=== PATIENT | male | born 1940 | race Caucasian/White ===

== ENCOUNTER → 2017-08-25 10:27 | Outpatient (CLI) | payer MEDICARE, SELFPAY ==
--- NOTE | 2017-08-25 10:27 | DT_ITS ---
This patient was seen during an EMR downtime August 21, 2017 - August 28, 2017. This patient may have a combination of paper and electronic documentation or all paper documentation. All documentation is viewable within the e-chart portion of [employer] for each patient visit.
[2017-08-25 14:21] LABS: ALB/GLOB Ratio 1.2 RATIO (0.9-2.4); AST(SGOT) 20 U/L (15-37); Alanine Aminotransfer ALT/SGPT 30 U/L (16-61); Albumin, Serum 3.7 g/dL (3.2-5.0); Alkaline Phosphatase 61 U/L (45-117); BUN 14 mg/dL (7-18); BUN/Creat Ratio 14.9 RATIO (10-20); Calcium,Total 8.3 mg/dL (8.5-10.1); Creatinine, Serum 0.94 mg/dL (0.70-1.30); EST Glomerular Filtration Rate 83 mL/min (>60); Est Glom Filt Rate - Afr Amer 101 mL/min (>60); Globulin 3.2 g/dL (2.2-4.2); Glucose 104 mg/dL (74-106); Protein, Total 6.9 g/dL (6.4-8.2)
[2017-08-25 14:22] LABS: Anion Gap 6 (5-15); Chloride 108 mmol/L (98-107); Potassium 4.2 mmol/L (3.5-5.1); Sodium Level 142 mmol/L (136-145); T4 Free Direct 0.94 ng/dL (0.76-1.46); Thyroid Stim Hormone (TSH) 0.82 uIU/mL (0.358-3.74)
[2017-08-25 14:59] LABS: Hematocrit 45.6 % (40-54); Mean Corp Hgb Conc 32.9 g/gl (32-36); Mean Corpuscular Hgb 32.4 pg (27.0-32.0); Mean Corpuscular Volume 98.5 fL (80-94); Red Blood Count 4.63 M/mm3 (4.6-6.2); White Blood Count 4.9 K/mm3 (4.4-11.0)
[2017-08-25 15:00] LABS: Absolute Lymphocyte Count 1.81 X10^3/ul (0.83-4.51); Absolute Neutrophil Count 2.5 X10^3/uL (2.0-7.7); Basophil# 0.02 X10^3/uL; Basophil% 0.4 % (0-1); Eosinophil# 0.21 X10^3/uL; Eosinophils% 4.3 % (0-5); Lymphocyte # 1.81 X10^3/ul (4.0); Lymphocyte % 36.9 % (19-41); Mean Platelet Vol. 9.3 fl (6.2-12.0); Monocyte# 0.36 X10^3/uL; Monocyte% 7.3 % (0-10); Neutrophil % 51.1 % (47-70); POSITIVE COUNT NO; POSITIVE DIFFERENTIAL NO; POSITIVE MORPHOLOGY NO; Platelet Count 182 K/mm3 (150-450)
== END ==
PROVIDERS: Family Provider Family Medicine; PCP Family Medicine; Visit Provider Family Medicine
DX: E11.9 Type 2 diabetes mellitus without complications (principal); I10 Essential (primary) hypertension; R00.1 Bradycardia, unspecified
CPT/HCPCS: 36415; 80053; 84439; 84443; 85025

== ENCOUNTER → 2017-09-07 13:59 | Outpatient (CLI) | payer MEDICARE, SELFPAY ==
--- NOTE | 2017-09-07 14:00 | CT_ITS ---
STUDY: CTA CHEST REASON FOR EXAM: Male, 77 years old. Thoracic aortic aneurysm follow-up. RADIATION DOSAGE (If Supplied By Facility): CTDIvol = ( 18.13 ) mGy, DLP = ( 669.37 ) mGycm TECHNIQUE: The examination was performed with the intravenous administration of 100mL ml of Isovue 370 contrast material. Post-processing of the angiographic images was performed, with multiplanar reformation and 3D reconstruction. Individualized dose optimization techniques were used for this CT. COMPARISON: CT of the chest June 13 2016 FINDINGS: Normal enhancement of the main pulmonary artery and right and left pulmonary arteries. Normal enhancement of the bilateral peripheral pulmonary arteries. There is no demonstrated pulmonary embolism. There is atherosclerotic tortuosity of the thoracic aorta. The ascending thoracic aorta measures 4.1 x 4.1 cm at the level of the right pulmonary artery (image 67, series 2) There is no demonstrated aortic dissection. Normal heart and pericardium. There are calcifications of the coronary arteries. Normal mediastinum. Normal hilar regions. Normal visualized trachea and bronchi. The lungs are well expanded. Normal pulmonary parenchyma. Normal pleura. Normal chest wall structures. Normal osseous structures. Normal visualized upper abdomen. CT/CTA Chest W/WO Contrast IMPRESSION: Ascending thoracic aortic aneurysm as described. Electronically Signed: Naren Arechiga DO at 16:58 EDT Tel [phone], Service support ,
== END ==
PROVIDERS: Family Provider Family Medicine; PCP Family Medicine; Visit Provider Internal Medicine Cardiovascular Disease
DX: I71.2 Thoracic aortic aneurysm, without rupture (principal)
CPT/HCPCS: 71275; Q9967

== ENCOUNTER 2018-07-01 17:29 | Emergency (ER) | payer MEDICARE, SELFPAY ==
[2018-02-21 11:26] VITALS: BMI 27.7
[2018-07-01 17:29] VITALS: BP 132/72; PULSE 62; RESP 16; TEMP 36.4; O2SAT 97; BMI 28.0
--- NOTE | 2018-07-01 18:54 | ED.DCSUM_ITS ---
- ER Visit Summary Date of Service: 07/01/18 Chief Complaint: [Left arm swelling] History of Present Illness: The patient is a 77 M [presents the emergency department complaint of left arm swelling that he initially noticed yesterday. Patient had some mild puffiness to the dorsum of the left hand but he had used a mower and a leaf blower and was having a lot of vibrations through it so he did not think much of it. This morning patient woke up in his forearm was also swollen and up towards his upper arm. Patient also noticed a red discoloration to the arm. His not had any fever or chills. He does not feel ill otherwise. He denies any chest pain or shortness of breath. Patient did have a pacemaker placed last January. He has had no other surgeries recently.] Physical Examination: [ROMARIO-PERRLA, MYRAMI. Cranial nerves II through XII grossly intact. TMs clear. Mucous membranes moist. No adenopathy. Cardiovascular-regular rate and rhythm without murmur or ectopy Lungs-clear to auscultation, chest wall stable without crepitus or subcu emphysema Abdomen-normoactive bowel sounds, soft, nontender, no rebound or rigidity, no peritoneal signs. Extremities-intact ?4, normal range of motion, normal pulses, atraumatic. Left arm-patient does have edema of the hand and forearm and just mild edema of the upper arm. There is a reddish discoloration to the left arm compared to the right however there is no change in temperature or warmth compared to the opposite side. There is no lymphogenic streaking. No ropes or cords palpated.] Test Results: [] Emergency Department Course and Treatment: [Ultrasound is not available therefore patient was given a dose of Eliquis 10 mg and patient was given a prescription to have a venous Doppler of the left upper extremity tomorrow morning. Patient also started on Keflex empirically as it is unclear if the edema could be early cellulitis given the reddish discoloration to the arm as well. Patient has normal pulses and I do not feel there is a arterial insufficiency.] Treatment Plan: [Patient will be started on Keflex and to have venous duplex of the left arm] Disposition: [Discharged home in stable condition] Impression: [Left arm swelling-etiology uncertain] This note was generated with [employer] software. It may contain incorrect words, spelling, and punctuation that were not noted in review of the chart prior to signing ED Disposition - Plan for ED Patient: Referrals: Jason Maston MD [Primary Care Provider] -
--- NOTE | 2018-07-01 18:55 | ED.DEP ---
ED Disposition - Plan for ED Patient: Instructions: ED Infec Skin Cellulitis Prescriptions: Cephalexin [Keflex] 500 mg PO Q6 #40 cap Referrals: Jason Matson MD [Primary Care Provider] - 3-5 Days
[2018-07-01] MEDS: APIXABAN 5 MG TABLET 10 MG PO (19:10)
[2018-07-01] MEDS: Cephalexin 250 MG Capsule 500 MG PO (19:11)
== END 2018-07-01 19:12 | disposition home or self-care (01) ==
LOC: ED 18:55
PROVIDERS: Emergency Provider Emergency Medicine; Family Provider Family Medicine; PCP Family Medicine
DX: M79.89 Other specified soft tissue disorders (principal); I25.10 Atherosclerotic heart disease of native coronary artery without angina pectoris; I25.2 Old myocardial infarction; E11.9 Type 2 diabetes mellitus without complications; Z95.0 Presence of cardiac pacemaker; Z79.82 Long term (current) use of aspirin; Z79.899 Other long term (current) drug therapy
CPT/HCPCS: 99283

== ENCOUNTER → 2018-07-02 10:37 | Outpatient (CLI) | payer MEDICARE, SELFPAY ==
[2018-07-01 17:29] VITALS: BMI 28.0
--- NOTE | 2018-07-02 10:44 | VDUE_ITS ---
Reason For Study: SWELLING Right Proximal Left Proximal Right subclavian vein is spontaneous, widely Left jugular vein is spontaneous, widely patent, phasic, with no intraluminal patent, phasic, with no intraluminal echogenicity noted. echogenicity noted. LT Subclavian v is dilated with intraluminal echogenicity noted in the proximal portion,. Thrombus extends proximally and to pacemaker placement. Left Arm Left axillary vein is spontaneous, patent, phasic, competent, compressible and demonstrates augmentation. Left brachial vein is compressible. Cephalic v intraluminal echogenicity extends from the Subclavian junction to just above junction. Left basilic vein is compressible. Left Lower Arm Left radial vein is compressible. Left ulnar vein is compressible. Interpretation Summary Acute deep venous thrombosis left subclavian vein in the proximal portion extending to the pacemaker placement. Superficial thrombophlebitis left cephalic vein adjacent to the subclavian vein junction. Normal flow right subclavian vein Ordering Physician: Marilin Simmons Referring Physician: LANA SERRANO Performed By: Annabella Childers, ANI, RVT ?
== END ==
PROVIDERS: Family Provider Family Medicine; PCP Family Medicine; Referring Provider Emergency Medicine; Visit Provider Emergency Medicine
DX: M79.89 Other specified soft tissue disorders (principal)
CPT/HCPCS: 93971

== ENCOUNTER → 2018-09-17 | Outpatient (CLI) | payer MEDICARE, SELFPAY ==
[2018-07-23 10:02] VITALS: BMI 27.8
--- NOTE | 2018-09-17 12:36 | VDUE_ITS ---
Reason For Study: Swelling, F/U DVT 06/2018 Right Proximal Left Proximal Right jugular vein is spontaneous, widely Left jugular vein is spontaneous, widely patent, phasic, with no intraluminal patent, phasic, with no intraluminal echogenicity noted. echogenicity noted. Lt SubclavianV is partially compressible with partial color fill, minimal flow noted. Left Arm Left axillary vein is spontaneous, patent, phasic, competent, compressible and demonstrates augmentation. Left brachial vein is compressible. Left cephalic vein is compressible. Left basilic vein is compressible. Left Lower Arm Left radial vein is compressible. Left ulnar vein is compressible. 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 Normal flow patterns right internal jugular vein Ordering Physician: Nacho Washington Referring Physician: Jason Matson Performed By: Heydi Walker RDCS, RVT ?
== END | disposition home or self-care (01) ==
LOC: CVS 12:35
PROVIDERS: Family Provider Family Medicine; PCP Family Medicine; Referring Provider Internal Medicine Cardiovascular Disease; Visit Provider Internal Medicine Cardiovascular Disease
DX: M79.89 Other specified soft tissue disorders (principal); I82.409 Acute embolism and thrombosis of unspecified deep veins of unspecified lower extremity
CPT/HCPCS: 93971

== ENCOUNTER → 2018-09-25 | Outpatient (CLI) | payer MEDICARE, SELFPAY ==
[2018-07-23 10:02] VITALS: BMI 27.8
[2018-09-25 12:13] LABS: Absolute Lymphocyte Count 1.81 X10^3/ul (0.83-4.51); Basophil# 0.01 X10^3/uL; Basophil% 0.2 % (0-1); Eosinophil# 0.17 X10^3/uL; Eosinophils% 3.1 % (0-5); Hemoglobin 14.2 g/dl (13.0-16.5); Lymphocyte # 1.81 X10^3/ul (4.0); Lymphocyte % 33.1 % (19-41); Mean Corp Hgb Conc 32.3 g/gl (32-36); Mean Corpuscular Hgb 30.8 pg (27.0-32.0); Mean Corpuscular Volume 95.4 fL (80-94); Mean Platelet Vol. 9.4 fl (6.2-12.0); Monocyte# 0.51 X10^3/uL; Monocyte% 9.3 % (0-10); Neutrophil # 2.96 X10^3/uL (2.7-7.7); Neutrophil % 54.1 % (47-70); Platelet Count 174 K/mm3 (150-450); RBC Distribution Width CV 12.7 % (11.6-14.6); RBC Distribution Width SD 43.1 fl (35.1-43.9); Red Blood Count 4.61 M/mm3 (4.6-6.2); White Blood Count 5.5 K/mm3 (4.4-11.0)
[2018-09-25 12:19] LABS: POSITIVE COUNT NO; POSITIVE DIFFERENTIAL NO; POSITIVE MORPHOLOGY NO
[2018-09-25 12:40] LABS: ALB/GLOB Ratio 1.1 RATIO (0.9-2.4); AST(SGOT) 21 U/L (15-37); Alanine Aminotransfer ALT/SGPT 28 U/L (16-61); Albumin, Serum 3.5 g/dL (3.2-5.0); Alkaline Phosphatase 68 U/L (45-117); Anion Gap 5 (5-15); BUN 14 mg/dL (7-18); BUN/Creat Ratio 13.5 RATIO (10-20); Chloride 104 mmol/L (98-107); Creatinine, Serum 1.04 mg/dL (0.70-1.30); EST Glomerular Filtration Rate 73 mL/min (>60); Est Glom Filt Rate - Afr Amer 89 mL/min (>60); Globulin 3.3 g/dL (2.2-4.2); Glucose 196 mg/dL (74-106); Magnesium 1.8 mg/dL (1.6-2.6); Potassium 4.3 mmol/L (3.5-5.1); Protein, Total 6.8 g/dL (6.4-8.2); Sodium Level 139 mmol/L (136-145); T4 Free Direct 0.77 ng/dL (0.76-1.46)
== END | disposition home or self-care (01) ==
LOC: BFHLAB 09:36
PROVIDERS: Family Provider Family Medicine; PCP Family Medicine; Visit Provider Family Medicine
DX: I25.10 Atherosclerotic heart disease of native coronary artery without angina pectoris (principal); I44.2 Atrioventricular block, complete; F32.9 Major depressive disorder, single episode, unspecified
CPT/HCPCS: 36415; 80053; 83735; 84439; 84443; 85025

== ENCOUNTER → 2018-10-26 | Outpatient (CLI) | payer MEDICARE, SELFPAY ==
[2018-10-22 10:40] VITALS: BMI 27.8
--- NOTE | 2018-10-26 07:32 | CT_ITS ---
STUDY: CT CHEST WITH CONTRAST REASON FOR EXAM: Male, 78 years old. History of an ascending aortic aneurysm. RADIATION DOSAGE (If Supplied By Facility): CTDIvol = ( 17.14 ) mGy, DLP = ( 581.75 ) mGycm TECHNIQUE: Transaxial imaging was performed following intravenous administration of 100 IV Isovue 300. Multiplanar coronal and sagittal images were reformatted. Individualized dose optimization techniques were used for this CT. COMPARISON: Comparison is made with prior study dated September 07, 2017. FINDINGS: Minimal increased markings at the lung bases suggestive of mild bibasilar scarring. There is no demonstrated pleural abnormality. There are calcifications of the coronary arteries. A left-sided pacemaker is seen. Normal mediastinum. Normal hilar regions. Normal enhanced pulmonary arteries. Minimal dilatation of the ascending thoracic aorta with a transverse dimension of 4.1 cm. This is unchanged. There are mild degenerative changes of the thoracic spine. There is no demonstrated abnormality of the visualized upper abdomen. CT/Chest WITH Contrast IMPRESSION: Stable dilatation of the ascending thoracic aorta with a transverse dimension of 4.1 cm. There has been no change since prior study. Electronically Signed: Apolinar Agrawal, at 13:49 EDT , Service support ,
== END | disposition home or self-care (01) ==
PROVIDERS: Family Provider Family Medicine; PCP Family Medicine; Referring Provider Internal Medicine Cardiovascular Disease; Visit Provider Internal Medicine Cardiovascular Disease
DX: I71.2 Thoracic aortic aneurysm, without rupture (principal)
CPT/HCPCS: 71260; Q9967

== ENCOUNTER → 2018-12-25 12:38 | Outpatient (CLI) | payer MEDICARE, SELFPAY ==
[2018-07-23 10:02] VITALS: BMI 27.8
[2018-10-22 10:40] VITALS: BMI 27.8
--- NOTE | 2018-12-25 12:40 | VDUE_ITS ---
Reason For Study: swelling Left Proximal Left jugular vein is spontaneous, widely patent, phasic, with no intraluminal echogenicity noted. Left subclavian vein is spontaneous, widely patent, phasic, with no intraluminal echogenicity noted. Left Arm Left axillary vein is spontaneous, patent, phasic, competent, compressible and demonstrates augmentation. Left brachial vein is compressible. Left cephalic vein is compressible. Left basilic vein is compressible. Left Lower Arm Left radial vein is compressible. Left ulnar vein is compressible. Interpretation Summary No evidence for acute deep venous thrombosis[left] upper extremity with patent and compressible cephalic and basilic veins. Ordering Physician: Nacho Washington Performed By: Jeyson Boone RVT ?
== END ==
PROVIDERS: Family Provider Family Medicine; PCP Family Medicine; Referring Provider Internal Medicine Cardiovascular Disease; Visit Provider Internal Medicine Cardiovascular Disease
DX: I82.409 Acute embolism and thrombosis of unspecified deep veins of unspecified lower extremity (principal); M79.89 Other specified soft tissue disorders
CPT/HCPCS: 93971

== ENCOUNTER → 2019-05-10 13:27 | Outpatient (CLI) | payer MEDICARE, SELFPAY ==
[2019-05-01 09:27] VITALS: BMI 27.8
[2019-05-10 16:01] LABS: AST(SGOT) 19 U/L (15-37); Alanine Aminotransfer ALT/SGPT 37 U/L (16-61); Albumin, Serum 3.7 g/dL (3.2-5.0); Alkaline Phosphatase 74 U/L (45-117); Bilirubin, Direct 0.16 mg/dL (0.00-0.30); Cholesterol 105 mg/dL (200); Globulin 3.4 g/dL (2.2-4.2); High Density Lipoprotein 43 mg/dL; Protein, Total 7.1 g/dL (6.4-8.2); Triglycerides 133 mg/dL; Very Low Density Lipoprotein 27 mg/dL (5-40)
== END ==
PROVIDERS: PCP Family Medicine; Visit Provider Physician Assistant Medical
DX: I25.10 Atherosclerotic heart disease of native coronary artery without angina pectoris (principal); E78.2 Mixed hyperlipidemia
CPT/HCPCS: 36415; 80061; 80076

== ENCOUNTER → 2020-01-07 10:48 | Outpatient (CLI) | payer MEDICARE, SELFPAY ==
[2019-05-01 09:27] VITALS: BMI 27.8
[2020-01-07 11:49] LABS: Absolute Lymphocyte Count 2.27 X10^3/uL (0.83-4.51); Absolute Neutrophil Count 2.6 X10^3/uL (2.0-7.7); Basophil# 0.04 X10^3/uL; Basophil% 0.7 % (0-1); Eosinophil# 0.25 X10^3/uL; Eosinophils% 4.4 % (0-5); Lymphocyte # 2.27 X10^3/ul (4.0); Mean Corp Hgb Conc 31.9 g/dL (32-36); Mean Corpuscular Hgb 31.1 pg (27.0-32.0); Mean Corpuscular Volume 97.3 fL (80-94); Mean Platelet Vol. 9.5 fl (6.2-12.0); Monocyte# 0.48 X10^3/uL; Monocyte% 8.5 % (0-10); NRBC Flagged by Analyzer 0 % (0-5); Neutrophil # 2.62 X10^3/uL (2.7-7.7); Neutrophil % 46.2 % (47-70); Platelet Count 182 K/mm3 (150-450); RBC Distribution Width SD 46.7 fl (35.1-43.9); Red Blood Count 4.83 M/mm3 (4.6-6.2); White Blood Count 5.7 K/mm3 (4.4-11.0)
[2020-01-07 12:09] LABS: Hemoglobin A1c 6.3 % (3.8-5.6)
[2020-01-07 12:52] LABS: AST(SGOT) 17 U/L (15-37); Alanine Aminotransfer ALT/SGPT 29 U/L (16-61); Albumin, Serum 3.9 g/dL (3.2-5.0); Alkaline Phosphatase 74 U/L (45-117); Anion Gap 7 (5-15); BUN 13 mg/dL (7-18); BUN/Creat Ratio 11.2 RATIO (10-20); Bilirubin, Direct 0.31 mg/dL (0.00-0.30); Calcium,Total 9.2 mg/dL (8.5-10.1); Chloride 103 mmol/L (98-107); Cholesterol 96 mg/dL (200); Creatinine, Serum 1.16 mg/dL (0.70-1.30); EST Glomerular Filtration Rate 65 mL/min (>60); Est Glom Filt Rate - Afr Amer 78 mL/min (>60); Globulin 3.5 g/dL (2.2-4.2); Glucose 92 mg/dL (74-106); High Density Lipoprotein 48 mg/dL; Potassium 4.1 mmol/L (3.5-5.1); Protein, Total 7.4 g/dL (6.4-8.2); Sodium Level 139 mmol/L (136-145); Triglycerides 103 mg/dL; Very Low Density Lipoprotein 21 mg/dL (5-40)
== END ==
LOC: LAB.FUTURE 10:48 → BFHLAB 10:50
PROVIDERS: Internal Medicine Cardiovascular Disease; PCP Family Medicine; Visit Provider Family Medicine
DX: E11.9 Type 2 diabetes mellitus without complications (principal); I10 Essential (primary) hypertension; F32.9 Major depressive disorder, single episode, unspecified; E78.00 Pure hypercholesterolemia, unspecified; E78.2 Mixed hyperlipidemia
CPT/HCPCS: 36415; 80048; 80061; 80076; 83036; 84443; 85025

== ENCOUNTER → 2020-01-29 13:32 | Outpatient (CLI) | payer MEDICARE, SELFPAY ==
[2019-05-01 09:27] VITALS: BMI 27.8
== END ==
PROVIDERS: PCP Family Medicine; Visit Provider Family Medicine
DX: R32 Unspecified urinary incontinence (principal)
CPT/HCPCS: 87086

== ENCOUNTER 2020-04-21 20:20 | Inpatient (IN) | payer MEDICARE, SELFPAY ==
[2019-05-01 09:27] VITALS: BMI 27.8
[2020-04-21 20:20] VITALS: BP 150/79; PULSE 87; RESP 16; TEMP 36.8; O2SAT 95; BMI 27.8
--- NOTE | 2020-04-21 20:42 | RAD_ITS ---
STUDY: X-RAY CHEST REASON FOR EXAM: Male, 79 years old. PT C/O BODY ACHES STARTING MONDAY NIGHT. STATES HAD A FEVER TODAY. DENIES SOB. FAMILY STATED HE HAS HAD SOME COUGH. TECHNIQUE: Frontal view COMPARISON: 10/25/2011 FINDINGS: Left-sided pacemaker is noted. The lungs are clear and expanded. There is no demonstrated pleural abnormality. Normal size heart. Normal mediastinum and panfilo. Normal visualized pulmonary arteries. Normal visualized aortic arch and descending thoracic aorta. Normal visualized thoracic spine. Normal visualized ribs, clavicles, and shoulders. There is no demonstrated abnormality of the visualized soft tissue structures of the upper abdomen. RAD/Chest 1 View (Portable) IMPRESSION: Normal x-ray examination of the chest. Electronically Signed: Ralf Pedro DO at 21:01 EST Tel [phone], Service support ,
[2020-04-21 20:56] VITALS: BP 111/76; PULSE 89; RESP 18; O2SAT 91
--- NOTE | 2020-04-21 20:56 | EKG12_ITS ---
Test Reason : FEVER Blood Pressure : / mmHG Vent. Rate : 089 BPM Atrial Rate : 089 BPM P-R Int : 158 ms QRS Dur : 188 ms QT Int : 458 ms P-R-T Axes : -19 -61 096 degrees QTc Int : 557 ms Normal sinus rhythm Left axis deviation Ventricular-paced rhythm Inferior infarct , age undetermined Abnormal ECG Confirmed by DIANA CARLSON, NHUNG ([id number]), editor in chief JOCELYNE GERMAIN ([id number]) on 04/24/2020 8:46:48 AM Referred By: CICI Confirmed By:NHUNG ORTIZ MD
--- NOTE | 2020-04-21 21:06 | ED.DCSUM_ITS ---
- ER Visit Summary Date of Service: 04/21/20 Chief Complaint: Cough History of Present Illness: The patient is a [address] Jason Matson. He reports he has a cough began approximate 2 weeks ago. States he has had myalgias for the past 2 days. He has had a fever to 100 degrees that began today. He denies chest pain or shortness of breath. Reports he has crampy diffuse abdominal pain is 1 out of 10 severity. He had diarrhea 2 days ago 2-3 times. There is no blood in his stool. He has not had a bowel movement since. States that he has intermittent headache. States that this time it is 1 out of 10 in severity. Physical Examination: Vitals: Stable. Afebrile. General: Well-nourished and well-developed. Head: Normocephalic atraumatic. Neck: Supple, no lymphadenopathy. No JVD. Nontender. Cardiovascular: Regular rate and rhythm. 2 out of 6 systolic murmur. Respiratory: No respiratory distress. Clear to auscultation bilaterally. Abdominal: Soft, nontender, nondistended, normal bowel sounds. No guarding, rebound, or peritoneal signs. Back: Nontender. Extremities: Nontender, no edema. Skin: Normal color, no rash. Neurologic: Alert and oriented ?3. Cranial nerves II through XII are intact. Normal strength and sensation. Psych: Normal affect. Test Results: EKG is sinus at 89 with nonspecific and intraventricular conduction delay nonspecific ST changes. CBC is normal. Chem-7 shows a glucose 207. Coags are normal. Lactic acid is 2.0. UA is negative. His COVID-19 rapid antigen is positive. Clinical Impression(s) from Imaging Studies Chest X-Ray 04/21/20 20:42 IMPRESSION: Normal x-ray examination of the chest. Electronically Signed: Ralf Pedro DO at 21:01 EST Tel [phone], Service support , Emergency Department Course and Treatment: Pulse ox dropped to 85% on room air with ambulation. He was given a dose of dexamethasone IV. Treatment Plan: Patient and family are not comfortable going home on oxygen. I do not think that he is an ideal candidate for this either. He was discussed with Dr. Riavs and will be admitted for further evaluation and treatment. Disposition: Admitted in serious condition. Impression: 1. COVID-19 infection. 2. Hypoxia. This note was generated with [employer] dictation software. It may contain incorrect words, spelling, and punctuation that were not noted in review of the chart prior to signing ED Disposition - Plan for ED Patient: Referrals: Jason Matson MD [Primary Care Provider] -
[2020-04-21 21:20] VITALS: BP 111/76; PULSE 89; RESP 24; O2SAT 93
[2020-04-21 21:44] LABS: Absolute Neutrophil Count 4.6 X10^3/uL (2.0-7.7); Basophil# 0.01 X10^3/uL; Basophil% 0.1 % (0-1); Eosinophil# 0.19 X10^3/uL; Eosinophils% 2.7 % (0-5); Hematocrit 44.6 % (40-54); Hemoglobin 14.8 g/dL (13.0-16.5); Lymphocyte % 26.6 % (19-41); Mean Corp Hgb Conc 33.2 g/dL (32-36); Mean Corpuscular Hgb 31.6 pg (27.0-32.0); Mean Corpuscular Volume 95.1 fL (80-94); Mean Platelet Vol. 9.6 fl (6.2-12.0); Monocyte# 0.47 X10^3/uL; Monocyte% 6.6 % (0-10); NRBC Flagged by Analyzer 0 % (0-5); Neutrophil # 4.56 X10^3/uL (2.7-7.7); Neutrophil % 63.7 % (47-70); Platelet Count 158 K/mm3 (150-450); RBC Distribution Width CV 12.5 % (11.6-14.6); RBC Distribution Width SD 43.4 fl (35.1-43.9); Red Blood Count 4.69 M/mm3 (4.6-6.2); White Blood Count 7.2 K/mm3 (4.4-11.0)
[2020-04-21 21:55] LABS: Prothrombin Time (Protime)PT. 12.5 SECONDS (11.7-14.9)
[2020-04-21 21:56] LABS: Partial Thromboplast Time 30.3 Seconds (24.1-36.2)
[2020-04-21 21:59] LABS: Bacteria 0 SEEN /hpf (None Seen); Red Blood Cells-Urine 0 SEEN /hpf (0-5); Squamous Epithelial Cells - UA 0 SEEN /hpf (0-5)
[2020-04-21 22:00] LABS: Color, Urine Yellow (Yellow); Glucose, Dipstick 250 mg/dl (Normal); Ketone-Dipstick 5 mg/dl (Negative); Leukocyte Esterase-Dipstick 25 /ul (Negative); Nitrite-Dipstick Negative (Negative); Occult Blood-Urine 10 /ul (Negative); Protein-Dipstick 15 mg/dl (Negative); Specific Gravity, Urine 1.025 (1.002-1.030); Urine Bilirubin Dipstick Negative (Negative); Urine Clarity Clear (Clear); Urine Urobilinogen 1 mg/dl (Normal)
[2020-04-21 22:02] LABS: ALB/GLOB Ratio 0.9 RATIO (0.9-2.4); AST(SGOT) 19 U/L (15-37); Alanine Aminotransfer ALT/SGPT 28 U/L (16-61); Albumin, Serum 3.4 g/dL (3.2-5.0); Alkaline Phosphatase 91 U/L (45-117); Anion Gap 4 (5-15); BUN 15 mg/dL (7-18); BUN/Creat Ratio 14.2 RATIO (10-20); Calcium,Total 8.9 mg/dL (8.5-10.1); Chloride 105 mmol/L (98-107); Creatinine, Serum 1.06 mg/dL (0.70-1.30); EST Glomerular Filtration Rate 72 mL/min (>60); Est Glom Filt Rate - Afr Amer 87 mL/min (>60); Globulin 3.9 g/dL (2.2-4.2); Glucose 207 mg/dL (74-106); Potassium 3.8 mmol/L (3.5-5.1); Protein, Total 7.3 g/dL (6.4-8.2); Sodium Level 139 mmol/L (136-145)
[2020-04-21 22:07] VITALS: TEMP 37.6
[2020-04-21 22:08] LABS: White Blood Cells 0-5 SEEN /hpf (0-5)
[2020-04-21 22:09] LABS: Mucous, Urine 1+ /hpf (<or=2+)
[2020-04-21 22:54] VITALS: O2SAT 94
[2020-04-21 23:00] VITALS: BP 132/68; PULSE 81; RESP 26; O2SAT 99
--- NOTE | 2020-04-21 23:34 | HP.PCM_ITS ---
Problem List (1) SARS-associated coronavirus infection Status: Acute (2) Mixed hyperlipidemia Status: Chronic (3) Complete heart block Status: Chronic (4) Presence of cardiac pacemaker Status: Chronic Comment: Implantation 02/01/18 (5) Presence of stent in coronary artery Status: Chronic Comment: PTCA/Stent of mid LAD,prox to mid large OM, a segment of first OM was aneurysmal 06/28/10; PTCA/Stent to LAD 08/29 (6) RBBB (right bundle branch block) Status: Chronic (7) Essential hypertension Status: Chronic (8) Nonrheumatic aortic (valve) insufficiency Status: Chronic (9) Atherosclerotic heart disease of [place] coronary artery without angina pectoris Status: Chronic Qualifiers: [place] vs. transplanted heart: [place] heart Qualified Code(s): I25.10 - Atherosclerotic heart disease of [place] coronary artery without angina pectoris (10) Thoracic aortic aneurysm without rupture Status: Chronic (11) Diabetes mellitus, type 2 Status: Chronic (12) Anxiety disorder Status: Chronic History of Present Illness Date of Admission: 04/21/20 Chief Complaint: Chills The patient is a 79 year old M with a significant history of hypertension; permanent pacemaker; diabetes mellitus; CAD status post stents who presents to the emergency department with chills. Associated with symptoms is watery eyes; muscle aches; headaches; subjective fever; and productive cough of clear sputum. He denies any loss of taste or smell sensation. His Covid test at emergency department was positive. Reportedly his oxygen saturation on ambulation was 85%. Past Medical History Past Medical History (Chronic Problems): Chronic Problems (Last Reviewed 04/22/20 @ 00:[address] Cesar Rivas MD) Mixed hyperlipidemia (Chronic) Complete heart block (Chronic) Presence of cardiac pacemaker (Chronic ~02/01/18) Implantation 02/01/18 Presence of stent in coronary artery (Chronic ~08/2011) PTCA/Stent of mid LAD,prox to mid large OM, a segment of first OM was aneurysmal 06/28/10; PTCA/Stent to LAD 08/29 RBBB (right bundle branch block) (Chronic) Essential hypertension (Chronic) Nonrheumatic aortic (valve) insufficiency (Chronic) Atherosclerotic heart disease of [place] coronary artery without angina pectoris (Chronic) Thoracic aortic aneurysm without rupture (Chronic) Diabetes mellitus, type 2 (Chronic) Anxiety disorder (Chronic) Medical History: Medical History (Last Reviewed 04/22/20 @ 04:[address] Cesar Rivas MD) Mixed hyperlipidemia (Chronic) E78.2 DVT (deep venous thrombosis) (Inactive) I82.409 Complete heart block (Chronic) I44.2 Presence of cardiac pacemaker (Chronic) Onset Date: ~02/01/18 Z95.0 Implantation 02/01/18 Presence of stent in coronary artery (Chronic) Onset Date: ~08/2011 Z95.5 PTCA/Stent of mid LAD,prox to mid large OM, a segment of first OM was aneurysmal 06/28/10; PTCA/Stent to LAD 08/29 RBBB (right bundle branch block) (Chronic) I45.10 History of non-ST elevation myocardial infarction (NSTEMI) (Inactive) I25.2 Essential hypertension (Chronic) I10 Nonrheumatic aortic (valve) insufficiency (Chronic) I35.1 Atherosclerotic heart disease of [place] coronary artery without angina pectoris (Chronic) I25.10 Thoracic aortic aneurysm without rupture (Chronic) I71.2 Diabetes mellitus, type 2 (Chronic) E11.9 Anxiety disorder (Chronic) F41.9 IBS (irritable bowel syndrome) K58.9 Esophagitis K20.9 History of melanoma Z85.820 Lt foot CVA (cerebral vascular accident) I63.9 CAD (coronary artery disease) (Inactive) I25.10 Dyslipidemia (Inactive) E78.5 Esophagitis (Inactive) K20.9 History of malignant melanoma (Inactive) Z85.820 Hypertension (Inactive) I10 Allergies shrimp Allergy (Verified 04/21/20 20:25) Nausea/Vom/Diarrhea Home Medications: Ambulatory Orders Medication Instructions Recorded aspirin 81 mg tablet,delayed 81 mg PO DAILY 02/14/18 release metoprolol succinate 25 mg 25 mg PO DAILY 02/14/18 tablet,extended release 24 hr nitroglycerin 0.4 mg sublingual 0.4 mg SUBLINGUAL Q5-15M PRN #25 06/20/18 tablet tab atorvastatin 80 mg tablet 80 mg PO QHS #90 tab 05/01/19 clopidogrel 75 mg tablet 75 mg PO DAILY #90 tab 05/01/19 metformin 500 mg tablet,extended 500 mg PO DAILY tab 05/01/19 release 24 hr lisinopril 10 1 tab PO QDAY #90 tab 03/09/20 mg-hydrochlorothiazide 12.5 mg tablet Surgical History: Surgical History (Last Reviewed 04/22/20 @ 04:[address] Cesar Rivas MD) Presence of coronary angioplasty implant and graft Z95.5 PTCA/Stent of mid LAD,prox to mid large OM, a segment of first OM was aneurysmal 06/28/10; PTCA/Stent to LAD 08/29 Smoking Status: Former smoker - *Family History Maternal Family History: Family History (Last Reviewed 04/22/20 @ 04:[address] Cesar Rivas MD) Mother CAD (coronary artery disease) Congestive heart failure Brother Myocardial infarction, Onset Age: 74 Review of Systems Constitutional: Reports: Chills. Denies: Fever, Weight Change Eyes: Reports: Drainage HEENT: Reports: Head Aches. Denies: Sinus Congestion, Sinus Drainage Cardiovascular: Denies: Chest Pain, Palpitations Respiratory: Reports: Cough, Sputum production Gastrointestinal: Denies: Abdominal Pain, Nausea, Vomiting Genitourinary: Denies: Dysuria Musculoskeletal: Reports: Muscle pain. Denies: Joint Pain, Joint Tenderness Skin: Denies: Rash, Wounds Neurological: Denies: Numbness, Tingling, Focal weakness Psychiatric: Denies: Anxiety, Depression, Homicidal Ideations, Suicidal Ideations Hematologic/ Lymphatic: Denies: Easy Bruising, Easy Bleeding VTE Information - Inpt Only VTE Present on Admission: No VTE Mechan Device Prophylaxis: None VTE Pharm Prophylaxis ordered?: Yes Patient Problems: Active and Suspected Problems (Last Reviewed 04/22/20 @ 00:[address] Cesar Rivas MD) SARS-associated coronavirus infection (Acute) - Physical Exam Vitals/I&O's: Vital Signs Temp Pulse Resp BP Pulse Ox 99.6 F H 81 26 H 132/68 H 99 04/21/20 22:07 04/21/20 23:00 04/21/20 23:00 04/21/20 23:00 04/21/20 23:00 Oxygen Flow Rate (L/min) 2 Oxygen Delivery Method Nasal Cannula Weight: 98.43 kg Body Mass Index (BMI) 27.8 General: Alert, Oriented x3, Cooperative HEENT: Atraumatic, PERRLA, EOMI, Normocephalic Neck: Supple, No JVD, Negative Carotid Bruits Lungs: Clear to auscultation, Normal air movement, Tachypneic Cardiovascular: Regular rate, Normal S1, Normal S2, No murmurs Abdomen: Bowel Sounds Present, Soft, Non Tender Extremities: No edema, Capillary Refill Less than 3 Seconds Skin: No rashes, No breakdown Musculoskeletal: No Tenderness to Palpation of Joints or Extremities Neurological: Cranial nerves II-XII grossly intact Psych/Mental Status: Normal Affect, Appropriate Microbiology Past 72 Hours 04/21/20 21:15 Mucosa - Nose SARS-CoV-2 Antigen (Rapid) - Final SARS-CoV-2 (COVID 19) 04/21/20 20:28 Mucosa - Nose SARS-CoV-2 Antigen (Rapid) - Final SARS-CoV-2 (COVID 19) Laboratory Results 04/21/20 21:12: WBC 7.2, RBC 4.69, Hgb 14.8, Hct 44.6, MCV 95.1 H, MCH 31.6, MCHC 33.2, RDW Std Deviation 43.4, RDW Coeff of Alberto 12.5, Plt Count 158, MPV 9.6, Immature Gran % (Auto) 0.300, Neut % (Auto) 63.7, Lymph % (Auto) 26.6, [place] % (Auto) 6.6, Eos % (Auto) 2.7, Baso % (Auto) 0.1, Absolute Neuts (auto) 4.6, Absolute Lymphs (auto) 1.90, Nucleated RBC % 0 04/21/20 21:12: PT 12.5, INR 1.0, APTT 30.3 04/21/20 21:12: Sodium 139, Potassium 3.8, Chloride 105, Carbon Dioxide 30.0, Anion Gap 4 L, BUN 15, Creatinine 1.06, Estim Creat Clear Calc 65.70, Est GFR (MDRD) Af Amer 87, Est GFR (MDRD) Non-Af 72, BUN/Creatinine Ratio 14.2, Glucose 207 H, Calcium 8.9, Total Bilirubin 0.80, AST 19, ALT 28, Alkaline Phosphatase 91, Total Protein 7.3, Albumin 3.4, Globulin 3.9, Albumin/Globulin Ratio 0.9 04/21/20 21:12: Lactic Acid 2.0 04/21/20 21:48: Urine Color Yellow, Urine Clarity Clear, Urine pH 5.0, Ur Specific [place] 1.025, Urine Protein 15 H, Urine Glucose (UA) 250 H, Urine Ketones 5 H, Urine Occult Blood 10 H, Urine Nitrite Negative, Urine Bilirubin Negative, Urine Urobilinogen 1 H, Ur Leukocyte Esterase 25 H, Urine RBC 0 SEEN, Urine WBC 0-5 SEEN, Ur Squamous Epith Cells 0 SEEN, Urine Bacteria 0 SEEN, Urine Mucus 1+ Assessment/Plan All Active Problems (Last Reviewed 04/22/20 @ 00:[address] Cesar Rivas MD) SARS-associated coronavirus infection (Acute) The patient is a 79 year old M with a significant history of hypertension; permanent pacemaker; diabetes mellitus; CAD status post stents who presents emergency department with chills; watery eyes; muscle aches; headaches; subjective fever; and productive cough of clear sputum; and with a positive coronavirus test.. Acute hypoxemic respiratory insufficiency secondary to SARS- COV 2 Reportedly at the emergency department his oxygen saturation was 85% % with ambulation and required supplemental oxygen by nasal cannula. Continue oxygen supplementation as necessary. Positive coronavirus test. Impression of chest x-ray by radiologist: Normal x-ray examination of the chest. Actual chest x-ray image was independently interpreted. I agree radiologist interpretation. D-dimer ordered. Procalcitonin ordered Received dexamethasone IV at emergency department. Dexamethasone p.o. ordered. Creatinine clearance is normal. Liver biochemistry is normal. Remdesivir ordered. Tylenol for fever Mucinex as needed Diabetes mellitus Patient with hyperglycemia on presentation Hold home Metformin continued. Accu-Chek QA [facility] with correction scale insulin ordered. Hypertension Blood pressure is stable in regard to his age Metoprolol and lisinopril continued. Trend blood pressure and adjust blood pressure medications as necessary CAD status post stent Aspirin and Lipitor continued Plavix continued Lisinopril and metoprolol continued. DVT prophylaxis Subcutaneous Lovenox ordered. Inpatient E&M: 69102 Init Hosp L3
[2020-04-22] VITALS (9 sets, daily range): BP systolic 115–137; BP diastolic 59–79; PULSE 66–77; RESP 16–24; TEMP 36.2–36.8; O2SAT 88–98; BMI 25.8; BMI 27.0
[2020-04-22] MEDS: dexAMETHasone 4 MG/ML Vial 6 MG IV (00:04)
[2020-04-22 01:33] LABS: Reflex Lactate? Y
[2020-04-22 02:37] LABS: Lactic Acid 1.6 mmol/L (0.4-1.9)
[2020-04-22 02:42] LABS: Absolute Lymphocyte Count 1.54 X10^3/uL (0.83-4.51); Absolute Neutrophil Count 5.7 X10^3/uL (2.0-7.7); Basophil# 0.03 X10^3/uL; Basophil% 0.4 % (0-1); Eosinophil# 0.07 X10^3/uL; Eosinophils% 0.9 % (0-5); Hematocrit 44.7 % (40-54); Hemoglobin 14.8 g/dL (13.0-16.5); Lymphocyte # 1.54 X10^3/ul (4.0); Lymphocyte % 20.1 % (19-41); Mean Corp Hgb Conc 33.1 g/dL (32-36); Mean Corpuscular Hgb 31.4 pg (27.0-32.0); Mean Corpuscular Volume 94.9 fL (80-94); Mean Platelet Vol. 9.5 fl (6.2-12.0); Monocyte% 3.9 % (0-10); NRBC Flagged by Analyzer 0 % (0-5); Neutrophil # 5.73 X10^3/uL (2.7-7.7); Neutrophil % 74.6 % (47-70); Platelet Count 159 K/mm3 (150-450); RBC Distribution Width CV 12.3 % (11.6-14.6); Red Blood Count 4.71 M/mm3 (4.6-6.2); White Blood Count 7.7 K/mm3 (4.4-11.0)
[2020-04-22 02:49] LABS: D-Dimer Quantitative (DVT/PE) 0.39 FEU/ug/m (0.27-0.49)
[2020-04-22 02:55] LABS: ALB/GLOB Ratio 0.9 RATIO (0.9-2.4); AST(SGOT) 16 U/L (15-37); Alanine Aminotransfer ALT/SGPT 27 U/L (16-61); Albumin, Serum 3.4 g/dL (3.2-5.0); Alkaline Phosphatase 84 U/L (45-117); Anion Gap 6 (5-15); BUN 15 mg/dL (7-18); BUN/Creat Ratio 14.7 RATIO (10-20); Chloride 108 mmol/L (98-107); Creatinine, Serum 1.02 mg/dL (0.70-1.30); EST Glomerular Filtration Rate 75 mL/min (>60); Est Glom Filt Rate - Afr Amer 90 mL/min (>60); Estimated Creatinine Clearance 68.28 ml/min; Globulin 3.7 g/dL (2.2-4.2); Glucose 187 mg/dL (74-106); Potassium 3.9 mmol/L (3.5-5.1); Protein, Total 7.1 g/dL (6.4-8.2); Sodium Level 139 mmol/L (136-145)
[2020-04-22 03:01] LABS: Procalcitonin 0.06 ng/mL (0.00-0.09)
[2020-04-22] MEDS: Acetaminophen 325 MG Tablet 650 MG PO (03:03)
[2020-04-22] MEDS: Insulin Lispro 100 UNIT/ML INSULN.PEN SC (06:48)
[2020-04-22 07:15] LABS: Bedside Glucose 246 mg/dL (70-110)
--- NOTE | 2020-04-22 07:21 | PCM.PN.HOSP ---
Patient Problems: Active and Suspected Problems (Last Reviewed 04/22/20 @ 04:[address] Cesar Rivas MD) SARS-associated coronavirus infection (Acute) Reason for Visit: Follow-up on COVID-19 infection Vitals/I&O's: Vital Signs Temp Pulse Resp BP Pulse Ox 97.1 F L 75 20 H 137/72 H 95 04/22/20 02:31 04/22/20 02:34 04/22/20 02:34 04/22/20 02:31 04/22/20 02:31 Oxygen Flow Rate (L/min) 2 Oxygen Delivery Method Nasal Cannula Weight: 91.172 kg Body Mass Index (BMI) 25.8 Intake and Output for Last 24 Hours 04/20/20 04/21/20 04/22/20 23:59 23:59 23:59 Intake Total 550 / 550 Balance 550 / 550 Microbiology Past 72 Hours 04/21/20 21:15 Mucosa - Nose SARS-CoV-2 Antigen (Rapid) - Final SARS-CoV-2 (COVID 19) 04/21/20 20:28 Mucosa - Nose SARS-CoV-2 Antigen (Rapid) - Final SARS-CoV-2 (COVID 19) Laboratory Results 04/21/20 21:12: WBC 7.2, RBC 4.69, Hgb 14.8, Hct 44.6, MCV 95.1 H, MCH 31.6, MCHC 33.2, RDW Std Deviation 43.4, RDW Coeff of Alberto 12.5, Plt Count 158, MPV 9.6, Immature Gran % (Auto) 0.300, Neut % (Auto) 63.7, Lymph % (Auto) 26.6, Mower % (Auto) 6.6, Eos % (Auto) 2.7, Baso % (Auto) 0.1, Absolute Neuts (auto) 4.6, Absolute Lymphs (auto) 1.90, Nucleated RBC % 0 04/21/20 21:12: PT 12.5, INR 1.0, APTT 30.3 04/21/20 21:12: Sodium 139, Potassium 3.8, Chloride 105, Carbon Dioxide 30.0, Anion Gap 4 L, BUN 15, Creatinine 1.06, Estim Creat Clear Calc 65.70, Est GFR (MDRD) Af Amer 87, Est GFR (MDRD) Non-Af 72, BUN/Creatinine Ratio 14.2, Glucose 207 H, Calcium 8.9, Total Bilirubin 0.80, AST 19, ALT 28, Alkaline Phosphatase 91, Total Protein 7.3, Albumin 3.4, Globulin 3.9, Albumin/Globulin Ratio 0.9 04/21/20 21:12: Lactic Acid 2.0 04/21/20 21:48: Urine Color Yellow, Urine Clarity Clear, Urine pH 5.0, Ur Specific [place] 1.025, Urine Protein 15 H, Urine Glucose (UA) 250 H, Urine Ketones 5 H, Urine Occult Blood 10 H, Urine Nitrite Negative, Urine Bilirubin Negative, Urine Urobilinogen 1 H, Ur Leukocyte Esterase 25 H, Urine RBC 0 SEEN, Urine WBC 0-5 SEEN, Ur Squamous Epith Cells 0 SEEN, Urine Bacteria 0 SEEN, Urine Mucus 1+ 04/22/20 02:00: Lactic Acid 1.6 04/22/20 02:00: D-Dimer Quant (PE/DVT) 0.39 04/22/20 02:00: Procalcitonin 0.06 04/22/20 02:00: WBC 7.7, RBC 4.71, Hgb 14.8, Hct 44.7, MCV 94.9 H, MCH 31.4, MCHC 33.1, RDW Std Deviation 43.0, RDW Coeff of Alberto 12.3, Plt Count 159, MPV 9.5, Immature Gran % (Auto) 0.100, Neut % (Auto) 74.6 H, Lymph % (Auto) 20.1, Mower % (Auto) 3.9, Eos % (Auto) 0.9, Baso % (Auto) 0.4, Absolute Neuts (auto) 5.7, Absolute Lymphs (auto) 1.54, Nucleated RBC % 0 04/22/20 02:00: Sodium 139, Potassium 3.9, Chloride 108 H, Carbon Dioxide 25.0, Anion Gap 6, BUN 15, Creatinine 1.02, Estim Creat Clear Calc 68.28, Est GFR (MDRD) Af Amer 90, Est GFR (MDRD) Non-Af 75, BUN/Creatinine Ratio 14.7, Glucose 187 H, Calcium 9.0, Total Bilirubin 0.80, AST 16, ALT 27, Alkaline Phosphatase 84, Total Protein 7.1, Albumin 3.4, Globulin 3.7, Albumin/Globulin Ratio 0.9 04/22/20 06:35: POC Glucose 246 H Current Medications Acetaminophen (Acetaminophen 325 Mg Tablet) 650 mg PO Q6H PRN PRN PRN Reason: pain 1-10/fever >=100.4f Last Admin: 04/22/20 03:03 Dose: 650 mg Documented by: Aspirin (Aspirin E.C. 81 Mg Tablet) 81 mg PO DAILY [facility] Atorvastatin Calcium (Atorvastatin Calcium 80 Mg Tablet) 80 mg PO QHS [facility] Clopidogrel Bisulfate (Clopidogrel Bisulfate 75 Mg Tablet) 75 mg PO DAILY [facility] Dexamethasone (Dexamethasone 4 Mg Tablet) 6 mg PO DAILY [facility] Dextrose (Dextrose 50%-Water 25 Gm/50 Ml Disp.Syrin) 0 gm IV X1 PRN; Protocol PRN Reason: Hypoglycemia Enoxaparin Sodium (Enoxaparin 30 Mg/0.3 Ml Syringe) 30 mg SC BID [facility] Glucagon (Glucagon 1 Mg/Ml Syringe) 1 mg IM .X1 PRN PRN Reason: Hypoglycemia Guaifenesin (Guaifenesin 10 Ml Udc (200mg/10ml)) 10 ml PO Q4H PRN PRN PRN Reason: COUGH Hydrochlorothiazide (Hydrochlorothiazide 12.5mg) 12.5 mg PO DAILY [facility] Remdesivir 100 mg/ Sodium (Chloride) 250 mls @ 125 mls/hr IV Q24H [facility] Stop: 04/25/20 23:59 Insulin Human Lispro (Insulin Lispro 100 Unit/Ml Insuln.Pen) 0 unit SC ACHS JET; Protocol Last Admin: 04/22/20 06:48 Dose: 4 units Documented by: Lisinopril (Lisinopril 10 Mg Tablet) 10 mg PO DAILY [facility] Metoprolol Succinate (Metoprolol(Xl)Succ 25 Mg Tablet) 25 mg PO DAILY [facility] Sodium Chloride (0.9% Saline Lock 10 Ml Syringe) 10 - 40 ml IV UD PRN PRN Reason: SALINE FLUSH Medical Necessity - Tobacco Use Smoking Status: Former smoker Assessment/Plan All Active Problems (Last Reviewed 04/22/20 @ 04:[address] Cesar Rivas MD) SARS-associated coronavirus infection (Acute)
[2020-04-22] MEDS: Lisinopril 10 MG Tablet PO (09:15)
[2020-04-22] MEDS: Enoxaparin 30 MG/0.3 ML Syringe SC (09:15)
[2020-04-22] MEDS: Clopidogrel Bisulfate 75 MG Tablet PO (09:15)
[2020-04-22] MEDS: hydroCHLOROthiazide 12.5mg 12.5 MG PO (09:15)
[2020-04-22] MEDS: Aspirin E.C. 81 MG Tablet PO (09:16)
[2020-04-22] MEDS: dexAMETHasone 4 MG Tablet 6 MG PO (09:16)
--- NOTE | 2020-04-22 10:50 | CASEMGMT ---
Addendum entered by Richelle Centeno 04/22/20 12:00: 1110: Per RN and Dr Garces, pt family had several questions re: Home O2 and concerns w/pt going home on O2. Per Yury, she has spoken with sonStoney, and education was provided. ALEXANDRO ALMANZAR also spoke w/Stoney at this time re: process for Home O2 set up and further questions were answered at this time. ALEXANDRO ALMANZAR recommended they get a pulse ox to monitor pt's oxygen levels at home and advised to have pt return to ER if symptoms worsen. Pt and Stoney both agreeable to pt discharging home on oxygen, if he qualifies for it @ discharge. Original Note: RN JENELLE NEON TUBE BENDER JENELLE placed call to pt's room for initial transition planning/care coordination assessment. ALEXANDRO ALMANZAR introduced self and role at [facility]. Pt voices understanding and consents to assessment at this time. Pt is A/O at this time and answers all questions appropriately. Care providers, pharmacy, and demographics verified/updated at this time. COVID-19 +. Pt states his son, Stoney, who he lives with has not had any COVID symptoms. He states Stoney is at work today. ALEXANDRO ALMANZAR made pt aware of recommendations for Stoney to self-quarantine x 2 weeks. He states his dtr-in-law can get groceries/supplies for them. 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 PCP: Dr Matson Specialists: Dr Washington--cardiology. Dr Henry--dermatology Preferred Pharmacy: [facility] Insurance: [facility] Prescription Benefit: Yes Living Will/HPOA: Has both LW and Healthcare POEdy, who is his sonStoney LNOK: son/POAStoney. Francisco Rios Living Arrangements: Lives with his sonStoney in one-story home. 3 steps to enter thru the garage. Independent Transportation: Pt states drives self and states no transportation concerns at this time. SonStoney, will take him home @ d/c. DME: Denies using any DME and denies needs. If pt requires O2 @ d/c, he states he has no preference of DME company and is agreeable with [employer]. Pt wishes to return home and states has no concerns with going home at time of discharge. He declines need for HHC or therpay. CM to follow for home oxygen needs and any further discharge planning/needs. Pt voices no further concerns/needs at this time. Advised pt to ask for CM if any further questions/concerns/needs arise. Voices understanding. PLAN: Home. Pt will need Home O2 testing prior to discharge. CM to follow. Clarisa MCKEONN RN CM
--- NOTE | 2020-04-22 12:23 | PCM.DC ---
- Discharge Diagnoses Current Active Problems: Current Active and Chronic Problems (Last Reviewed 04/22/20 @ 04:[address] Cesar Rivas MD) SARS-associated coronavirus infection (Acute) Mixed hyperlipidemia (Chronic) Complete heart block (Chronic) Presence of cardiac pacemaker (Chronic ~02/01/18) Implantation 02/01/18 Presence of stent in coronary artery (Chronic ~08/2011) PTCA/Stent of mid LAD,prox to mid large OM, a segment of first OM was aneurysmal 06/28/10; PTCA/Stent to LAD 08/29 RBBB (right bundle branch block) (Chronic) Essential hypertension (Chronic) Nonrheumatic aortic (valve) insufficiency (Chronic) Atherosclerotic heart disease of [place] coronary artery without angina pectoris (Chronic) Thoracic aortic aneurysm without rupture (Chronic) Diabetes mellitus, type 2 (Chronic) Anxiety disorder (Chronic) Reason(s) for Visit for Discharge Instructions: Acute COVID-19 infection You will use the following diet at home:: Calorie/Carbohydrate Controlled (specify 1200, 1400, etc) - 1800 calories, Cardiac Your food should be the consistency of: Regular Your liquids should be the consistency of: Regular/Thin Discharge Activity: Return to Normal Activity Additional Instructions: Continue to use your incentive spirometer all the time. Complete the oral dexamethasone as prescribed. Use your albuterol inhaler as needed for shortness of breath. Continue to quarantine for 2 more weeks. Continue to use your pulse oximeter and monitor for your oxygen levels in your blood. Let your doctor know when you are dropping below 90% on the pulse oximeter consistently Allergies/Adverse Reactions: Allergies shrimp Allergy (Verified 04/21/20 20:25) Nausea/Vom/Diarrhea Medications to take at Discharge aspirin 81 mg tablet,delayed release 81 mg PO DAILY 02/14/18 metoprolol succinate 25 mg tablet,extended release 24 hr 25 mg PO DAILY 02/14/18 nitroglycerin 0.4 mg sublingual tablet 0.4 mg SUBLINGUAL Q5-15M PRN #25 tab 06/20/18 atorvastatin 80 mg tablet 80 mg PO QHS #90 tab 05/01/19 clopidogrel 75 mg tablet 75 mg PO DAILY #90 tab 05/01/19 metformin 500 mg tablet,extended release 24 hr 500 mg PO DAILY tab 05/01/19 lisinopril 10 mg-hydrochlorothiazide 12.5 mg tablet 1 tab PO QDAY #90 tab 03/09/20 Acetaminophen [Tylenol Tablet] 650 mg PO Q6H PRN PRN tab 04/22/20 Albuterol Inhaler [Ventolin Hfa] 2 puff INHALATION Q4H PRN PRN #1 inhaler 04/22/20 Dexamethasone [Decadron] 6 mg PO DAILY 9 Days #9 tab 04/22/20 The following prescriptions were given: Dexamethasone [Decadron] 6 mg PO DAILY 9 Days #9 tab Transmission Status: Pending to [facility]/pharmacy #[id number] Albuterol Inhaler [Ventolin Hfa] 2 puff INHALATION Q4H PRN PRN #1 inhaler PRN Reason: Sob &/Or Wheezing Transmission Status: Pending to [facility]/pharmacy #[id number] Primary Care Physician: Jason Matson MD [Primary Care Provider] - Please follow up with your Primary Care Physician in: within 1-2 weeks Test Results: Test results from this visit will be discussed in further detail at your follow-up appointment, if applicable. Proposed Discharge Date: 04/22/20
--- NOTE | 2020-04-22 12:31 | DS.PCM_ITS ---
Discharge Date and Diagnosis - Problem List Patient Problems: Active and Suspected Problems (Last Reviewed 04/22/20 @ 04:[address] Cesar Rivas MD) SARS-associated coronavirus infection (Acute) Date of Admission: 04/21/20 Date of Discharge: 04/22/20 - Primary Discharge Diagnosis Acute Problems: Active Problems (Last Reviewed 04/22/20 @ 04:[address] Cesar Rivas MD) SARS-associated coronavirus infection (Acute) - Secondary Discharge Diagnosis Chronic Problems: Chronic Problems (Last Reviewed 04/22/20 @ 04:[address] Cesar Rivas MD) Mixed hyperlipidemia (Chronic) Complete heart block (Chronic) Presence of cardiac pacemaker (Chronic ~02/01/18) Implantation 02/01/18 Presence of stent in coronary artery (Chronic ~08/2011) PTCA/Stent of mid LAD,prox to mid large OM, a segment of first OM was aneurysmal 06/28/10; PTCA/Stent to LAD 08/29 RBBB (right bundle branch block) (Chronic) Essential hypertension (Chronic) Nonrheumatic aortic (valve) insufficiency (Chronic) Atherosclerotic heart disease of [place] coronary artery without angina pectoris (Chronic) Thoracic aortic aneurysm without rupture (Chronic) Diabetes mellitus, type 2 (Chronic) Anxiety disorder (Chronic) Hospital Course and Treatment Imaging Results: Clinical Impression(s) from Imaging Studies Chest X-Ray 04/21/20 20:42 IMPRESSION: Normal x-ray examination of the chest. Electronically Signed: Ralf Pedro DO at 21:01 EST Tel [phone], Service support , None Operations: None Procedures: None Summary of Care Provided: The patient is a 79 year old M with multiple comorbidities including CAD status post stent, CVA, hypertension, type II DM who comes in with progressive shortness of breath, neurolyse weakness and fever that started 8 days prior to admission. He had episodes of loose stools that has since resolved. Denied any loss of taste or smell. His rapid antigen test was positive. His chest x-ray showed no acute abnormality. Patient did qualify for oxygen in the ED. He was going to be discharged on oxygen but declined and wanted to be admitted. Was managed on dexamethasone and remdesivir. Overnight, patient continued to remain stable. Was on 2 L of oxygen. Denied any new complaints. He was evaluated for home oxygen and did not qualify. Patient was discharged on dexamethasone. Patient Problems: Active and Suspected Problems (Last Reviewed 04/22/20 @ 04:[address] Cesar Rivas MD) SARS-associated coronavirus infection (Acute) Subjective: On the day of discharge, patient was seen and examined. Denied any new comp laints. Objective: Physical exam: General: Alert, Oriented x3, Cooperative HEENT: Atraumatic, PERRLA, EOMI, Normocephalic Neck: Supple, No JVD, Negative Carotid Bruits Lungs: Clear to auscultation, Normal air movement, Tachypneic Cardiovascular: Regular rate, Normal S1, Normal S2, No murmurs Abdomen: Bowel Sounds Present, Soft, Non Tender Extremities: No edema, Capillary Refill Less than 3 Seconds Skin: No rashes, No breakdown Musculoskeletal: No Tenderness to Palpation of Joints or Extremities Neurological: Cranial nerves II-XII grossly intact Psych/Mental Status: Normal Affect, Appropriate - Physical Exam Vitals/I&O's: Vital Signs Temp Pulse Resp BP Pulse Ox 97.8 F 66 16 137/66 H 97 04/22/20 08:00 04/22/20 08:00 04/22/20 08:00 04/22/20 08:00 04/22/20 12:26 Oxygen Flow Rate (L/min) [ 0 AMBULATING on Room Air] Oxygen Flow Rate (L/min) [At 0 REST on Room Air] Oxygen Flow Rate (L/min) 2 Oxygen Delivery Method Nasal Cannula Weight: 91.172 kg Body Mass Index (BMI) 25.8 Intake and Output for Last 24 Hours 04/20/20 04/21/20 04/22/20 23:59 23:59 23:59 Intake Total 670 / 670 Balance 670 / 670 Microbiology Past 72 Hours 04/21/20 21:15 Mucosa - Nose SARS-CoV-2 Antigen (Rapid) - Final SARS-CoV-2 (COVID 19) 04/21/20 20:28 Mucosa - Nose SARS-CoV-2 Antigen (Rapid) - Final SARS-CoV-2 (COVID 19) Laboratory Results 04/21/20 21:12: WBC 7.2, RBC 4.69, Hgb 14.8, Hct 44.6, MCV 95.1 H, MCH 31.6, MCHC 33.2, RDW Std Deviation 43.4, RDW Coeff of Alberto 12.5, Plt Count 158, MPV 9.6, Immature Gran % (Auto) 0.300, Neut % (Auto) 63.7, Lymph % (Auto) 26.6, Weld % (Auto) 6.6, Eos % (Auto) 2.7, Baso % (Auto) 0.1, Absolute Neuts (auto) 4.6, Absolute Lymphs (auto) 1.90, Nucleated RBC % 0 04/21/20 21:12: PT 12.5, INR 1.0, APTT 30.3 04/21/20 21:12: Sodium 139, Potassium 3.8, Chloride 105, Carbon Dioxide 30.0, Anion Gap 4 L, BUN 15, Creatinine 1.06, Estim Creat Clear Calc 65.70, Est GFR (MDRD) Af Amer 87, Est GFR (MDRD) Non-Af 72, BUN/Creatinine Ratio 14.2, Glucose 207 H, Calcium 8.9, Total Bilirubin 0.80, AST 19, ALT 28, Alkaline Phosphatase 91, Total Protein 7.3, Albumin 3.4, Globulin 3.9, Albumin/Globulin Ratio 0.9 04/21/20 21:12: Lactic Acid 2.0 04/21/20 21:48: Urine Color Yellow, Urine Clarity Clear, Urine pH 5.0, Ur Specific [place] 1.025, Urine Protein 15 H, Urine Glucose (UA) 250 H, Urine Ketones 5 H, Urine Occult Blood 10 H, Urine Nitrite Negative, Urine Bilirubin Negative, Urine Urobilinogen 1 H, Ur Leukocyte Esterase 25 H, Urine RBC 0 SEEN, Urine WBC 0-5 SEEN, Ur Squamous Epith Cells 0 SEEN, Urine Bacteria 0 SEEN, Urine Mucus 1+ 04/22/20 02:00: Lactic Acid 1.6 04/22/20 02:00: D-Dimer Quant (PE/DVT) 0.39 04/22/20 02:00: Procalcitonin 0.06 04/22/20 02:00: WBC 7.7, RBC 4.71, Hgb 14.8, Hct 44.7, MCV 94.9 H, MCH 31.4, MCHC 33.1, RDW Std Deviation 43.0, RDW Coeff of Alberto 12.3, Plt Count 159, MPV 9.5, Immature Gran % (Auto) 0.100, Neut % (Auto) 74.6 H, Lymph % (Auto) 20.1, [place] % (Auto) 3.9, Eos % (Auto) 0.9, Baso % (Auto) 0.4, Absolute Neuts (auto) 5.7, Absolute Lymphs (auto) 1.54, Nucleated RBC % 0 04/22/20 02:00: Sodium 139, Potassium 3.9, Chloride 108 H, Carbon Dioxide 25.0, Anion Gap 6, BUN 15, Creatinine 1.02, Estim Creat Clear Calc 68.28, Est GFR (MDRD) Af Amer 90, Est GFR (MDRD) Non-Af 75, BUN/Creatinine Ratio 14.7, Glucose 187 H, Calcium 9.0, Total Bilirubin 0.80, AST 16, ALT 27, Alkaline Phosphatase 84, Total Protein 7.1, Albumin 3.4, Globulin 3.7, Albumin/Globulin Ratio 0.9 04/22/20 06:35: POC Glucose 246 H Current Medications Acetaminophen (Acetaminophen 325 Mg Tablet) 650 mg PO Q6H PRN PRN PRN Reason: pain 1-10/fever >=100.4f Last Admin: 04/22/20 03:03 Dose: 650 mg Documented by: Aspirin (Aspirin E.C. 81 Mg Tablet) 81 mg PO DAILY [facility] Last Admin: 04/22/20 09:16 Dose: 81 mg Documented by: Atorvastatin Calcium (Atorvastatin Calcium 80 Mg Tablet) 80 mg PO QHS [facility] Clopidogrel Bisulfate (Clopidogrel Bisulfate 75 Mg Tablet) 75 mg PO DAILY [facility] Last Admin: 04/22/20 09:15 Dose: 75 mg Documented by: Dexamethasone (Dexamethasone 4 Mg Tablet) 6 mg PO DAILY [facility] Last Admin: 04/22/20 09:16 Dose: 6 mg Documented by: Dextrose (Dextrose 50%-Water 25 Gm/50 Ml Disp.Syrin) 0 gm IV X1 PRN; Protocol PRN Reason: Hypoglycemia Enoxaparin Sodium (Enoxaparin 30 Mg/0.3 Ml Syringe) 30 mg SC BID [facility] Last Admin: 04/22/20 09:15 Dose: 30 mg Documented by: Glucagon (Glucagon 1 Mg/Ml Syringe) 1 mg IM .X1 PRN PRN Reason: Hypoglycemia Guaifenesin (Guaifenesin 10 Ml Udc (200mg/10ml)) 10 ml PO Q4H PRN PRN PRN Reason: COUGH Hydrochlorothiazide (Hydrochlorothiazide 12.5mg) 12.5 mg PO DAILY [facility] Last Admin: 04/22/20 09:15 Dose: 12.5 mg Documented by: Remdesivir 100 mg/ Sodium (Chloride) 250 mls @ 125 mls/hr IV Q24H [facility] Stop: 04/25/20 23:59 Insulin Human Lispro (Insulin Lispro 100 Unit/Ml Insuln.Pen) 0 unit SC ACHS [facility]; Protocol Last Admin: 04/22/20 12:22 Dose: Not Given Documented by: Lisinopril (Lisinopril 10 Mg Tablet) 10 mg PO DAILY [facility] Last Admin: 04/22/20 09:15 Dose: 10 mg Documented by: Metformin HCl (Metformin (Xr) 500 Mg Tablet) 500 mg PO DAILY@1700 JET Metoprolol Succinate (Metoprolol(Xl)Succ 25 Mg Tablet) 25 mg PO DAILY [facility] Sodium Chloride (0.9% Saline Lock 10 Ml Syringe) 10 - 40 ml IV UD PRN PRN Reason: SALINE FLUSH Discharge Diet: Low fat/ Low Cholesterol, 2000 mg Sodium Diet, Carb Control Diet Discharge Activity: Return to Normal Activity Home Medications: Medications to take at Discharge aspirin 81 mg tablet,delayed release 81 mg PO DAILY 02/14/18 metoprolol succinate 25 mg tablet,extended release 24 hr 25 mg PO DAILY 02/14/18 nitroglycerin 0.4 mg sublingual tablet 0.4 mg SUBLINGUAL Q5-15M PRN #25 tab 06/20/18 atorvastatin 80 mg tablet 80 mg PO QHS #90 tab 05/01/19 clopidogrel 75 mg tablet 75 mg PO DAILY #90 tab 05/01/19 metformin 500 mg tablet,extended release 24 hr 500 mg PO DAILY tab 05/01/19 lisinopril 10 mg-hydrochlorothiazide 12.5 mg tablet 1 tab PO QDAY #90 tab 03/09/20 Acetaminophen [Tylenol Tablet] 650 mg PO Q6H PRN PRN tab 04/22/20 Albuterol Inhaler [Ventolin Hfa] 2 puff INHALATION Q4H PRN PRN #1 inhaler 04/22/20 Dexamethasone [Decadron] 6 mg PO DAILY 9 Days #9 tab 04/22/20 Following Prescriptions Were Given to Patient: Dexamethasone [Decadron] 6 mg PO DAILY 9 Days #9 tab Transmission Status: Pending to [facility]/pharmacy #[id number] Albuterol Inhaler [Ventolin Hfa] 2 puff INHALATION Q4H PRN PRN #1 inhaler PRN Reason: Sob &/Or Wheezing Transmission Status: Pending to [facility]/pharmacy #[id number] Primary Care Physician: Jason Matson MD [Primary Care Provider] - Please follow up with your Primary Care Physician in: within 1-2 weeks Disposition: Home Minutes spent on discharge:: 40 Patient Condition:: Stable Medical Necessity - Tobacco Use Smoking Status: Former smoker Tobacco Use: Non-smoker Meaningful Use Info Meaningful Use Diagnoses (Choose all that apply): None applicable Inpatient E&M: 064[facility]
[2020-04-22] MEDS: Metoprolol(XL)Succ 25 MG Tablet PO (13:08)
== END 2020-04-22 13:20 | disposition home or self-care (01) | DRG 178 ==
LOC: ED 23:48 → ICU 04-22 06:22
PROVIDERS: Admitting Provider Hospitalist; Emergency Provider Emergency Medicine; PCP Family Medicine; Visit Provider Internal Medicine
DX: U07.1 COVID-19 (principal); I44.2 Atrioventricular block, complete; R09.02 Hypoxemia; R06.89 Other abnormalities of breathing; I25.10 Atherosclerotic heart disease of native coronary artery without angina pectoris; I10 Essential (primary) hypertension; E78.00 Pure hypercholesterolemia, unspecified; E78.2 Mixed hyperlipidemia; F41.9 Anxiety disorder, unspecified; I35.1 Nonrheumatic aortic (valve) insufficiency; I71.2 Thoracic aortic aneurysm, without rupture; E11.65 Type 2 diabetes mellitus with hyperglycemia; I45.10 Unspecified right bundle-branch block; I25.2 Old myocardial infarction; K58.9 Irritable bowel syndrome, unspecified; Z86.73 Personal history of transient ischemic attack (TIA), and cerebral infarction without residual deficits; Z86.718 Personal history of other venous thrombosis and embolism; Z95.5 Presence of coronary angioplasty implant and graft; Z85.820 Personal history of malignant melanoma of skin; Z79.02 Long term (current) use of antithrombotics/antiplatelets; Z79.82 Long term (current) use of aspirin; Z79.84 Long term (current) use of oral hypoglycemic drugs; Z87.891 Personal history of nicotine dependence; Z95.0 Presence of cardiac pacemaker; Z79.899 Other long term (current) drug therapy
CPT/HCPCS: 36415; 71045; 80053; 81001; 82962; 83605; 84145; 85025; 85379; 85610; 85730; 87040; 87086; 87426; 93005; 99285; J7050; A4216

== ENCOUNTER 2020-05-21 10:17 | Outpatient (RCR) | payer MEDICARE, SELFPAY ==
[2020-04-22 02:28] VITALS: BMI 25.8
[2020-05-21] MEDS: COVID-19 VACC, MRNA(PFIZER)/PF 30 MCG/0.3 ML SYRINGE IM (18:48)
[2020-06-11] MEDS: COVID-19 VACC, MRNA(PFIZER)/PF 30 MCG/0.3 ML SYRINGE IM (18:23)
== END 2020-05-21 23:59 ==
LOC: IMMUN 10:17
PROVIDERS: PCP Family Medicine; Referring Provider Family Medicine; Visit Provider Family Medicine
DX: Z23 Encounter for immunization (principal)
CPT/HCPCS: 0001A; 0002A; 91300

== ENCOUNTER 2020-08-16 00:52 | Emergency (ER) | payer MEDICARE, SELFPAY ==
[2020-04-22 02:28] VITALS: BMI 25.8
[2020-08-16 00:52] VITALS: BP 144/66; PULSE 60; RESP 18; TEMP 36.6; O2SAT 98; BMI 26.7
[2020-08-16 01:13] VITALS: BP 144/66; PULSE 60; RESP 18; O2SAT 98
--- NOTE | 2020-08-16 01:16 | EDS_ITS ---
HPI History of Present Illness Chief Complaint: Wound Informant: patient Narrative Narrative: Patient states about 3 days ago he got what he assumed was a fever blister on his lower left lip. He states that last night and tonight it has been bleeding. He notes that he is on a blood thinner but does not remember the name (plavix). He states that he could not get it to quit. He is worried that it might be cancer. He has a history of melanoma and sees Dr. Henry locally for that. [facility] Medical History Anxiety disorder Atherosclerotic heart disease of [place] coronary artery without angina pectoris CAD (coronary artery disease) Complete heart block CVA (cerebral vascular accident) Diabetes mellitus, type 2 DVT (deep venous thrombosis) Dyslipidemia Esophagitis Esophagitis Essential hypertension History of malignant melanoma History of melanoma History of non-ST elevation myocardial infarction (NSTEMI) Hypertension IBS (irritable bowel syndrome) Mixed hyperlipidemia Nonrheumatic aortic (valve) insufficiency Presence of cardiac pacemaker (~02/01/18) Presence of stent in coronary artery (~08/2011) RBBB (right bundle branch block) Thoracic aortic aneurysm without rupture Home Medications aspirin 81 mg tablet,delayed release 81 mg PO DAILY 02/14/18 [History Last Taken Unknown] metoprolol succinate 25 mg tablet,extended release 24 hr 25 mg PO DAILY 02/14/18 [History Last Taken Unknown] nitroglycerin 0.4 mg sublingual tablet 0.4 mg SUBLINGUAL Q5-15M PRN #25 tab 06/20/18 [Rx Last Taken Unknown] metformin 500 mg tablet,extended release 24 hr 500 mg PO DAILY tab 05/01/19 [History Last Taken Unknown] lisinopril 10 mg-hydrochlorothiazide 12.5 mg tablet 1 tab PO QDAY #90 tab 03/09/20 [Rx Last Taken Unknown] acetaminophen 650 mg PO Q6H PRN PRN tab 04/22/20 [Rx Last Taken Unknown] albuterol sulfate 2 puff INHALATION Q4H PRN PRN #1 inhaler 04/22/20 [Rx Last Ger en Unknown] atorvastatin 80 mg tablet 80 mg PO QHS #90 tab 05/22/20 [Rx Last Taken Unknown] clopidogrel 75 mg tablet 75 mg PO DAILY #90 tab 07/13/20 [Rx Last Taken Unknown] Allergy/AdvReac Type Severity Reaction Status Date / Time shrimp Allergy Nausea/Vom/ Verified 08/16/20 00:52 Diarrhea Family History Mother CAD (coronary artery disease) Congestive heart failure Brother Myocardial infarction, Onset Age: 74 Surgical History Presence of coronary angioplasty implant and graft Social History Smoking Status: Former smoker alcohol intake: never substance use type: does not use ROS ROS ED Constitutional Constitutional ED: Denies chills or weight loss Eyes Eyes: Denies change in vision or diplopia ENT ENT ED: Reports other Details: Lip wound ; Denies ear pain, rhinorrhea or sore throat Cardiovascular Cardiovascular: Denies chest pain, orthopnea, palpitations or racing heartbeat Respiratory/Chest Respiratory/Chest: Denies cough, dyspnea or orthopnea Gastrointestinal Gastrointestinal: Denies abdominal pain, diarrhea, nausea or vomiting Genitourinary Genitourinary ED: Denies dysuria, hematuria or urinary frequency Musculoskeletal Musculoskeletal: Denies arthralgias or myalgias Integumentary Denies abscess or rash Neurologic Neurologic: Denies headache(s) or weakness Psychiatric Psychiatric: Denies anxiety, depression, suicidal ideation or suicidal thoughts Endocrine Endocrinology: Denies polydipsia, polyphagia or polyuria Allergic/Immunologic Allergic/Immunologic ED: Denies mouth swelling, tongue swelling or urticaria EXAM Physical Exam Const Vital Signs: 08/16/20 00:52 Temperature 97.8 F Temperature Source Oral Pulse Rate 60 Respiratory Rate 18 Blood Pressure 144/66 H Blood Pressure Mean 92 Pulse Ox 98 Oxygen Delivery Method Room Air Positive well nourished and well developed General Appearance ED: well developed HEENT Reports normocephalic, head/scalp atraumatic and moist mucous membranes HEENT Narrative: On the lower left lip there is a circular wound. There is no active bleeding. There is recent clot formation. It is flat. It is approximately 3 mm in diameter. Eyes PERRL and EOMs intact bilaterally Neck no lymphadenopathy, supple and no JVD Resp normal respiratory effort and clear to auscultation bilaterally Cardio regular rate, regular rhythm and no murmurs GI normal to inspection, nondistended, normoactive bowel sounds and non-tender Palpation: soft Back/Spine no CVA tenderness and normal ROM Extremity normal to inspection General Extremety ED: Negative for edema General Extremity: Negative for edema Neuro oriented x3 and CN's II-XII intact bilaterally Sensorium / Orientation: alert Motor Exam: strength 5/5 throughout Psych mental status grossly normal Mood & Affect: Negative for depressed or tearful Skin no rashes or lesions noted and no wounds MDM MDM MDM Narrative Medical decision making narrative: Patient was advised that if it bleeds he should hold continuous pressure for 15 minutes and then not dab at it continuously if it stops bleeding. 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 Discharge Plan Triage Chief Complaint: Wound ED Provider: Kirby Graham Dx/Rx/DC Orders Clinical Impression: Bleeding from wound Instructions: ED Wound Check (No Infection) Prescriptions: No Action aspirin [Adult Low Dose Aspirin] 81 mg tablet,delayed release (DR/EC) 81 mg PO DAILY RF: 0 metoprolol succinate [Toprol XL] 25 mg tablet extended release 24 hr 25 mg PO DAILY RF: 0 metformin 500 mg tablet extended release 24 hr 500 mg PO DAILY RF: 0 acetaminophen 325 MG tablet 650 mg PO Q6H PRN PRN (Reason: pain 1-10/fever >=100.4f) RF: 0 albuterol sulfate 1 INHALER inhaler 2 puff INHALATION Q4H PRN PRN (Reason: Sob &/Or Wheezing) Qty: 1 RF: 0 nitroglycerin 0.4 mg tablet, sublingual 0.4 mg SUBLINGUAL Q5-15M PRN (Reason: chest pain) Qty: 25 RF: 3 lisinopril-hydrochlorothiazide 10-12.5 mg tablet 1 tab PO QDAY Qty: 90 RF: 3 atorvastatin 80 mg tablet 80 mg PO QHS Qty: 90 RF: 3 clopidogrel 75 mg tablet 75 mg PO DAILY Qty: 90 RF: 3 Primary Care Provider: Jason Matson Referrals: Pacheco Henry MD [STAFF PHYSICIAN] - (Call to arrange follow-up if your wound is not healing in 1 week) Jason Matson MD [Primary Care Provider] - Disposition Disposition: Home, self care
== END 2020-08-16 01:40 | disposition home or self-care (01) ==
LOC: ED 01:25
PROVIDERS: Emergency Provider Emergency Medicine; PCP Family Medicine
DX: S01.501A Unspecified open wound of lip, initial encounter (principal); X58.XXXA Exposure to other specified factors, initial encounter; Y93.9 Activity, unspecified; Y92.9 Unspecified place or not applicable; E11.9 Type 2 diabetes mellitus without complications; E78.2 Mixed hyperlipidemia; I10 Essential (primary) hypertension; F41.9 Anxiety disorder, unspecified; I25.10 Atherosclerotic heart disease of native coronary artery without angina pectoris; I25.2 Old myocardial infarction; I35.1 Nonrheumatic aortic (valve) insufficiency; I44.2 Atrioventricular block, complete; I71.2 Thoracic aortic aneurysm, without rupture; K58.9 Irritable bowel syndrome, unspecified; Z95.0 Presence of cardiac pacemaker; Z87.19 Personal history of other diseases of the digestive system; Z86.73 Personal history of transient ischemic attack (TIA), and cerebral infarction without residual deficits; Z85.820 Personal history of malignant melanoma of skin; Z86.718 Personal history of other venous thrombosis and embolism; Z79.82 Long term (current) use of aspirin; Z79.84 Long term (current) use of oral hypoglycemic drugs; Z79.899 Other long term (current) drug therapy; Z87.891 Personal history of nicotine dependence
CPT/HCPCS: 99282

== ENCOUNTER 2020-11-01 09:21 | Emergency (ER) | payer MEDICARE, SELFPAY ==
[2020-11-01 09:22] VITALS: BP 153/88; PULSE 60; RESP 18; TEMP 36.3; O2SAT 99; BMI 27.1
--- NOTE | 2020-11-01 09:58 | RAD_ITS ---
STUDY: X-RAY CHEST REASON FOR EXAM: Male, 80 years old. Chest pain and shortness of breath. TECHNIQUE: Single AP portable view of the chest. COMPARISON: 04/21/2020 FINDINGS: Dual-chamber left-sided cardiac pacing device in stable position. The lungs are clear and expanded. There is no demonstrated pleural abnormality. The cardiac silhouette is within normal limits. Normal mediastinum and panfilo. Normal visualized pulmonary arteries. There is atherosclerotic tortuosity of the aortic arch and descending thoracic aorta. No demonstrated acute osseous changes. There is no demonstrated abnormality of the visualized soft tissue structures of the upper abdomen. RAD/Chest 1 View (Portable) IMPRESSION: No active pulmonary disease. Electronically Signed: Nicolas Bolton MD at 10:34 EDT Tel , Service support ,
--- NOTE | 2020-11-01 09:59 | EX.ED.UPPERE ---
HPI History of Present Illness Chief Complaint: Upper Extremity Injury Informant: patient Narrative Narrative: Patient is an 80-year-old male with a past medical history of CAD with 3 stents placed, pacemaker, upper extremity DVT previously on anticoagulation, diabetes, thoracic aortic aneurysm who presents to the emergency department for left arm heaviness sensation. He had an episode of chest pain and shortness of breath which lasted 3 minutes yesterday. He felt very tired after mowing his lawn. He has been feeling some dizziness. He came into the emergency department today because he thought he could potentially have a blood clot in his upper extremity which was the same feeling he had in his arm last time. This was after he had a pacemaker placed. He is currently on Plavix but no other anticoagulation medications. He was treated for his blood clot a few years prior. He does have a mild cough with some clear sputum production. He denies fevers or chills. No leg swelling or calf pain. No abdominal pain or back pain. He is not having any chest pain or shortness of breath at this time. He denies any significant swelling to the left arm. He has a very distant former smoking history. [facility] Medical History Anxiety disorder Atherosclerotic heart disease of [place] coronary artery without angina pectoris CAD (coronary artery disease) Complete heart block CVA (cerebral vascular accident) Diabetes mellitus, type 2 DVT (deep venous thrombosis) Dyslipidemia Esophagitis Esophagitis Essential hypertension History of malignant melanoma History of melanoma History of non-ST elevation myocardial infarction (NSTEMI) Hypertension IBS (irritable bowel syndrome) Mixed hyperlipidemia Nonrheumatic aortic (valve) insufficiency Presence of cardiac pacemaker (~02/01/18) Presence of stent in coronary artery (~08/2011) RBBB (right bundle branch block) Thoracic aortic aneurysm without rupture Home Medications aspirin 81 mg tablet,delayed release 81 mg PO DAILY 02/14/18 [History Last Taken Unknown] metoprolol succinate 25 mg tablet,extended release 24 hr 25 mg PO DAILY 02/14/18 [History Last Taken Unknown] nitroglycerin 0.4 mg sublingual tablet 0.4 mg SUBLINGUAL Q5-15M PRN #25 tab 06/20/18 [Rx Last Taken Unknown] metformin 500 mg tablet,extended release 24 hr 500 mg PO DAILY tab 05/01/19 [History Last Taken Unknown] lisinopril 10 mg-hydrochlorothiazide 12.5 mg tablet 1 tab PO QDAY #90 tab 03/09/20 [Rx Last Taken Unknown] acetaminophen 650 mg PO Q6H PRN PRN tab 04/22/20 [Rx Last Taken Unknown] albuterol sulfate 2 puff INHALATION Q4H PRN PRN #1 inhaler 04/22/20 [Rx Last Taken Unknown] atorvastatin 80 mg tablet 80 mg PO QHS #90 tab 05/22/20 [Rx Last Taken Unknown] clopidogrel 75 mg tablet 75 mg PO DAILY #90 tab 07/13/20 [Rx Last Taken Unknown] Allergy/AdvReac Type Severity Reaction Status Date / Time shrimp Allergy Nausea/Vom/ Verified 11/01/20 09:22 Diarrhea Family History Mother CAD (coronary artery disease) Congestive heart failure Brother Myocardial infarction, Onset Age: 74 Surgical History Presence of coronary angioplasty implant and graft Social History Smoking Status: Former smoker alcohol intake: never substance use type: does not use ROS ROS ED Constitutional Constitutional ED: Denies chills or fever(s) Eyes Eyes: Denies change in vision ENT ENT ED: Denies epistaxis or rhinorrhea Cardiovascular Cardiovascular: Reports chest pain; Denies palpitations Respiratory/Chest Respiratory/Chest: Reports cough, dyspnea and sputum Gastrointestinal Gastrointestinal: Denies abdominal pain, diarrhea, nausea or vomiting Genitourinary Genitourinary ED: Denies dysuria, hematuria or urinary frequency Musculoskeletal Musculoskeletal: Denies back pain or neck pain Integumentary Denies rash Neurologic Neurologic: Denies dizziness, headache(s), paresthesias or weakness EXAM Physical Exam Const Vital Signs: 11/01/20 09:22 Temperature 97.4 F L Temperature Source Temporal Pulse Rate 60 Respiratory Rate 18 Blood Pressure 153/88 H Blood Pressure Mean 109 Pulse Ox 99 Oxygen Delivery Method Room Air Positive well nourished and well developed General Appearance ED: well developed and NAD HEENT Reports normocephalic, head/scalp atraumatic and moist mucous membranes Eyes PERRL and EOMs intact bilaterally Neck supple Chest Wall inspection of chest normal Resp normal respiratory effort and clear to auscultation bilaterally Auscultation: Negative for rales, rhonchi or wheezes Cardio regular rate, regular rhythm and no murmurs GI normal to inspection, nondistended, normoactive bowel sounds and non-tender Palpation: soft; Negative for guarding or rebound tenderness present Extremity normal to inspection Extremity Narrative: Good physician assistant strength on the left. 2+ radial pulse. Symmetrical sensation of upper extremities bilaterally. 5 out of 5 muscle strength. General Extremety ED: Negative for edema or tenderness General Extremity: Negative for edema Neuro oriented x3, CN's II-XII intact bilaterally and no sensory deficits noted Neuro Narrative: No focal neurological deficits appreciated. Sensorium / Orientation: alert Motor Exam: strength 5/5 throughout Psych mental status grossly normal Skin no rashes or lesions noted Lesions: no lesions Rashes: no rashes MDM MDM MDM Narrative Medical decision making narrative: Patient presents to the [facility] department for left arm heaviness. He feels like he might have a blood clot in the arm which is a similar sensation whenever he was diagnosed with a DVT in the arm previously. This was after his pacemaker was placed. Patient did have an episode of chest pain, shortness of breath yesterday. He is denying this now. Will check basic lab work including EKG and chest x-ray to make sure this is not cardiac in nature with atypical pain. Ultrasound of the upper extremity will be obtained although I have low suspicion for blood clot at this time. Ultrasound of the patient's upper extremity did not reveal any evidence of blood clot. I have low concern for stroke causing the arm sensation. He has good range of motion, 5 out of 5 muscle strength and no sensory loss. No other focal deficit or symptom. His troponin was within normal limits and the delta troponin actually trended downward slightly. 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 Washington. This loss patient not having any active symptoms he believes that patient is stable for discharge and is happy to follow-up with him as an outpatient tomorrow. Patient is happy with this plan. To be discharged home in stable condition. Return precautions are reviewed including any worsening symptoms, any redeveloping of any chest pain, shortness of breath. He understands and is agreeable this plan. Discharged home in stable condition. All questions were answered. EKG Initial EKG: Attestation: I personally reviewed and interpreted this EKG as follows: (Rate of 61 bpm and an atrial paced rhythm. Prolonged CO interval of 202. Prolonged QRS of 198 with left bundle branch block. No significant ST elevations or depressions. No T wave abnormalities.) Discharge Plan Triage Chief Complaint: Upper Extremity Injury ED Provider: Cesar Kay Dx/Rx/DC Orders Clinical Impression: Arm heaviness Instructions: ED Chest Pain, Noncardiac Prescriptions: No Action aspirin [Adult Low Dose Aspirin] 81 mg tablet,delayed release (DR/EC) 81 mg PO DAILY RF: 0 metoprolol succinate [Toprol XL] 25 mg tablet extended release 24 hr 25 mg PO DAILY RF: 0 metformin 500 mg tablet extended release 24 hr 500 mg PO DAILY RF: 0 acetaminophen 325 MG tablet 650 mg PO Q6H PRN PRN (Reason: pain 1-10/fever >=100.4f) RF: 0 albuterol sulfate 1 INHALER inhaler 2 puff INHALATION Q4H PRN PRN (Reason: Sob &/Or Wheezing) Qty: 1 RF: 0 nitroglycerin 0.4 mg tablet, sublingual 0.4 mg SUBLINGUAL Q5-15M PRN (Reason: chest pain) Qty: 25 RF: 3 lisinopril-hydrochlorothiazide 10-12.5 mg tablet 1 tab PO QDAY Qty: 90 RF: 3 atorvastatin 80 mg tablet 80 mg PO QHS Qty: 90 RF: 3 clopidogrel 75 mg tablet 75 mg PO DAILY Qty: 90 RF: 3 Primary Care Provider: Jason Matson Referrals: Nacho Washington MD [STAFF PHYSICIAN] - 1 Day Jason Matson MD [Primary Care Provider] - 3-5 Days Disposition Disposition: Home, Self Care Discharge Date/Time: 11/01/20 12:55
[2020-11-01 10:04] LABS: Absolute Lymphocyte Count 1.67 X10^3/uL (0.83-4.51); Basophil# 0.03 X10^3/uL; Basophil% 0.6 % (0-1); Eosinophils% 3.7 % (0-5); Lymphocyte # 1.67 X10^3/ul (0.83-4.51); Lymphocyte % 31.2 % (19-41); Mean Corp Hgb Conc 32.6 g/dL (32-36); Mean Corpuscular Hgb 31.3 pg (27.0-32.0); Mean Platelet Vol. 9.2 fl (6.2-12.0); Monocyte% 7.5 % (0-10); NRBC Flagged by Analyzer 0 % (0-5); Neutrophil # 3.03 X10^3/uL (2.7-7.7); Neutrophil % 56.6 % (47-70); Platelet Count 176 K/mm3 (150-450); RBC Distribution Width CV 12.8 % (11.6-14.6); RBC Distribution Width SD 45.2 fl (35.1-43.9); Red Blood Count 4.48 M/mm3 (4.6-6.2); White Blood Count 5.4 K/mm3 (4.4-11.0)
[2020-11-01 10:17] LABS: Anion Gap 3 (5-15); BUN 11 mg/dL (7-18); BUN/Creat Ratio 11.2 RATIO (10-20); Calcium,Total 8.9 mg/dL (8.5-10.1); Chloride 106 mmol/L (98-107); Creatinine, Serum 0.98 mg/dL (0.70-1.30); EST Glomerular Filtration Rate 78 mL/min (>60); Est Glom Filt Rate - Afr Amer 95 mL/min (>60); Glucose 94 mg/dL (74-106); Sodium Level 139 mmol/L (136-145); Troponin-I HS 12.1 pg/mL (3.0-78.5)
--- NOTE | 2020-11-01 10:21 | EKG12_ITS ---
Test Reason : Blood Pressure : / mmHG Vent. Rate : 061 BPM Atrial Rate : 061 BPM P-R Int : 202 ms QRS Dur : 198 ms QT Int : 502 ms P-R-T Axes : -19 -60 114 degrees QTc Int : 505 ms Atrial-paced rhythm Left axis deviation Left bundle branch block Abnormal ECG Confirmed by DIANA CARLSON, NHUNG ([id number]), science editor JOCELYNE GERMAIN ([id number]) on 11/03/2020 9:29:08 AM Referred By: BOB Confirmed By:NHUNG ORTIZ MD
--- NOTE | 2020-11-01 10:38 | VDUE_ITS ---
Reason For Study: LUE SWELLING Right Proximal Left Proximal Right subclavian vein is spontaneous, widely Left jugular vein is spontaneous, widely patent, phasic, with no intraluminal patent, phasic, with no intraluminal echogenicity noted. echogenicity noted. Left subclavian vein is spontaneous, widely patent, phasic, with no intraluminal echogenicity noted. Left Arm Left axillary vein is spontaneous, patent, phasic, competent, compressible and demonstrates augmentation. Left brachial vein is compressible. Left cephalic vein is compressible. Left basilic vein is compressible. Left Lower Arm Left radial vein is compressible. Left ulnar vein is compressible. VL/Venous Duplex US, Unilateral Interpretation Summary Deep veins of the left upper extremity are patent and compressible segmentally. There is no evidence of deep vein thrombosis. The superficial veins of the left upper extremity, the basilic and cephalic veins, are patent and compressible. There is no evidence of left upper extremit y superficial thrombophlebitis involving the veins imaged. Preliminary given to Dr. Kay @ 11:35 am. Ordering Physician: Cesar Kay Referring Physician: Jason Matson Performed By: Esther Hernandez, ANI, RVT ?
[2020-11-01 11:50] VITALS: BP 161/88; PULSE 60; RESP 16; O2SAT 98
[2020-11-01 12:13] LABS: Troponin-I HS 11.7 pg/mL (3.0-78.5)
[2020-11-01 12:53] VITALS: BP 156/90; PULSE 60; O2SAT 97
== END 2020-11-01 12:55 | disposition home or self-care (01) ==
PROVIDERS: Emergency Provider Emergency Medicine; PCP Family Medicine
DX: M79.602 Pain in left arm (principal); R42 Dizziness and giddiness; R06.00 Dyspnea, unspecified; R07.9 Chest pain, unspecified; I44.7 Left bundle-branch block, unspecified; I10 Essential (primary) hypertension; E11.9 Type 2 diabetes mellitus without complications; E78.2 Mixed hyperlipidemia; F41.9 Anxiety disorder, unspecified; I25.2 Old myocardial infarction; I35.1 Nonrheumatic aortic (valve) insufficiency; I71.2 Thoracic aortic aneurysm, without rupture; K58.9 Irritable bowel syndrome, unspecified; I25.10 Atherosclerotic heart disease of native coronary artery without angina pectoris; Z87.19 Personal history of other diseases of the digestive system; Z86.73 Personal history of transient ischemic attack (TIA), and cerebral infarction without residual deficits; Z85.820 Personal history of malignant melanoma of skin; Z86.718 Personal history of other venous thrombosis and embolism; Z95.0 Presence of cardiac pacemaker; Z95.5 Presence of coronary angioplasty implant and graft; Z79.82 Long term (current) use of aspirin; Z79.02 Long term (current) use of antithrombotics/antiplatelets; Z79.84 Long term (current) use of oral hypoglycemic drugs; Z87.891 Personal history of nicotine dependence; Z79.899 Other long term (current) drug therapy
CPT/HCPCS: 36415; 71045; 80048; 84484; 85025; 93005; 93971; 99284; A4216

== ENCOUNTER → 2021-01-28 06:57 | Outpatient (CLI) | payer MEDICARE, SELFPAY ==
--- NOTE | 2021-01-28 07:06 | CT_ITS ---
STUDY: CT CHEST WITH CONTRAST REASON FOR EXAM: Male, 80 years old. FOLLOW SIZE THORACIC AORTIC ANEURYSM RADIATION DOSAGE (If Supplied By Facility): CTDIvol = ( 14.53 ) mGy, DLP = ( 726.28 ) mGycm TECHNIQUE: Transaxial imaging was performed following intravenous administration of IV 100mL Isovue-300. Multiplanar coronal and sagittal images were reformatted. Individualized dose optimization techniques were used for this CT. COMPARISON: Comparison is made with prior study dated 10/26/2018. FINDINGS: Minimal increased markings at the lung bases suggest a mild degree of bibasilar scarring. There is no demonstrated pleural abnormality. There are calcifications of the coronary arteries. A left-sided dual-chamber pacemaker is seen. Normal mediastinum. Normal hilar regions. Normal enhanced pulmonary arteries. Stable dilatation of the ascending thoracic aorta with a transverse dimension of 4.1 cm. There are mild degenerative changes of the thoracic spine. There is no demonstrated abnormality of the visualized upper abdomen. CT/Chest WITH Contrast IMPRESSION: Stable dilatation of the ascending thoracic aorta with a transverse dimension of 4.1 cm. Electronically Signed: Apolinar Agrawal MD at 9:11 EST , Service support ,
[2021-01-28 07:21] LABS: EGFR FINGERSTICK > 60.0000 mL/min (>60)
== END ==
PROVIDERS: PCP Family Medicine; Referring Provider Family Medicine; Visit Provider Family Medicine
DX: I71.2 Thoracic aortic aneurysm, without rupture (principal)
CPT/HCPCS: 71260; Q9967

== ENCOUNTER 2022-02-09 11:15 | Outpatient (CLI) | payer MEDICARE, SELFPAY ==
--- NOTE | 2022-02-09 11:18 | RAD_ITS ---
EXAM: XR ABDOMEN, 1 VIEW CLINICAL INDICATION: INFREQUENT BM TECHNIQUE: Frontal supine view of the abdomen/pelvis. This report was created using [employer] report generation technology. COMPARISON: None. FINDINGS: LOWER THORAX: No acute pathology. GASTROINTESTINAL TRACT: Mild stool burden within the large bowel. No evidence of bowel obstruction. ORGANS: No organomegaly. BONES/JOINTS: No acute abnormality. SOFT TISSUES: No pathological calcification. RAD/Abdomen Single View IMPRESSION: Mild constipation. Electronically Signed: Floyd Acevedo MD at 11:53 EST ,
[2022-02-09 15:30] LABS: Absolute Lymphocyte Count 2.98 X10^3/uL (0.83-4.51); Basophil# 0.04 X10^3/uL; Basophil% 0.6 % (0-1); Eosinophil# 0.24 X10^3/uL; Eosinophils% 3.6 % (0-5); Hematocrit 46.7 % (40-54); Hemoglobin 15.5 g/dL (13.0-16.5); Lymphocyte # 2.98 X10^3/ul (0.83-4.51); Lymphocyte % 44.6 % (19-41); Mean Corp Hgb Conc 33.2 g/dL (32-36); Mean Corpuscular Hgb 31.5 pg (27.0-32.0); Mean Corpuscular Volume 94.9 fL (80-94); Mean Platelet Vol. 9.1 fl (6.2-12.0); Monocyte# 0.42 X10^3/uL; Monocyte% 6.3 % (0-10); NRBC Flagged by Analyzer 0 % (0-5); Neutrophil # 2.98 X10^3/uL (2.7-7.7); Neutrophil % 44.6 % (47-70); Platelet Count 184 K/mm3 (150-450); RBC Distribution Width CV 12.3 % (11.6-14.6); RBC Distribution Width SD 42.6 fl (35.1-43.9); Red Blood Count 4.92 M/mm3 (4.6-6.2); White Blood Count 6.7 K/mm3 (4.4-11.0)
[2022-02-09 16:03] LABS: Hemoglobin A1c 6.2 % (3.8-5.6)
[2022-02-09 16:05] LABS: ALB/GLOB Ratio 1.4 RATIO (0.9-2.4); AST(SGOT) 21 U/L (15-37); Alanine Aminotransfer ALT/SGPT 32 U/L (16-61); Albumin, Serum 4.1 g/dL (3.2-5.0); Alkaline Phosphatase 75 U/L (45-117); Anion Gap 8 (5-15); BUN 13 mg/dL (7-18); BUN/Creat Ratio 12.7 RATIO (10-20); Calcium,Total 9.4 mg/dL (8.5-10.1); Chloride 102 mmol/L (98-107); Cholesterol 115 mg/dL (200); Creatinine, Serum 1.02 mg/dL (0.70-1.30); EST Glomerular Filtration Rate 74 mL/min (>60); Est Glom Filt Rate - Afr Amer 90 mL/min (>60); Glucose 88 mg/dL (74-106); High Density Lipoprotein 49 mg/dL; Protein, Total 7.1 g/dL (6.4-8.2); Sodium Level 138 mmol/L (136-145); Thyroid Stim Hormone (TSH) 1.22 uIU/mL (0.358-3.74); Triglycerides 141 mg/dL; Very Low Density Lipoprotein 28 mg/dL (5-40)
== END 2022-02-09 23:59 | disposition home or self-care (01) ==
LOC: MTLAB 11:16
PROVIDERS: PCP Family Medicine; Referring Provider Family Medicine; Visit Provider Family Medicine
DX: E11.9 Type 2 diabetes mellitus without complications (principal); I25.10 Atherosclerotic heart disease of native coronary artery without angina pectoris; I10 Essential (primary) hypertension; K59.00 Constipation, unspecified
CPT/HCPCS: 36415; 74018; 80053; 80061; 83036; 84443; 85025

== ENCOUNTER 2022-03-12 10:34 | Emergency (ER) | payer MEDICARE, SELFPAY ==
[2022-03-12 10:36] VITALS: BP 134/83; PULSE 63; RESP 16; TEMP 36.2; O2SAT 97; BMI 27.8
[2022-03-12 11:31] LABS: Bacteria 0 SEEN /hpf (None Seen); Mucous, Urine 0 SEEN /hpf (<or=2+); Squamous Epithelial Cells - UA 0 SEEN /hpf (0-5)
[2022-03-12 11:32] LABS: Color, Urine Yellow (Yellow); Glucose, Dipstick 50 mg/dl (Normal); Ketone-Dipstick Negative (Negative); Leukocyte Esterase-Dipstick Negative /ul (Negative); Nitrite-Dipstick Negative (Negative); Occult Blood-Urine 250 /ul (Negative); Protein-Dipstick 30 mg/dl (Negative); Urine Bilirubin Dipstick Negative (Negative); Urine Clarity Clear (Clear); Urine Urobilinogen Normal (Normal)
[2022-03-12 11:38] LABS: Red Blood Cells-Urine 10-25 SEEN /hpf (0-5); White Blood Cells 0-5 SEEN /hpf (0-5)
--- NOTE | 2022-03-12 11:53 | EX.ED.GUMALE ---
HPI History of Present Illness Chief Complaint: Complaint Narrative Narrative: 81-year-old male presenting with painless hematuria. This started . Intermittently has been clear. He denies any penile or testicular trauma. He denies any dysuria, urinary frequency. He does not have any abdominal or flank pain. No nausea or vomiting. No fever or chills. Patient states he has a very distant history of kidney stone x1. He states he had pain without one. PFSH PFS Medical History Anxiety disorder Atherosclerotic heart disease of [place] coronary artery without angina pectoris CAD (coronary artery disease) Complete heart block CVA (cerebral vascular accident) Diabetes mellitus, type 2 DVT (deep venous thrombosis) Dyslipidemia Esophagitis Esophagitis Essential hypertension History of malignant melanoma History of melanoma History of non-ST elevation myocardial infarction (NSTEMI) Hypertension IBS (irritable bowel syndrome) Mixed hyperlipidemia Nonrheumatic aortic (valve) insufficiency Presence of cardiac pacemaker (~02/01/18) Presence of stent in coronary artery (~08/2011) RBBB (right bundle branch block) Thoracic aortic aneurysm without rupture Home Medications aspirin 81 mg tablet,delayed release (Adult Low Dose Aspirin) 81 mg PO DAILY 02/14/18 [History Last Taken Unknown] metoprolol succinate 25 mg tablet,extended release 24 hr (Toprol XL) 25 mg PO DAILY 02/14/18 [History Last Taken Unknown] nitroglycerin 0.4 mg sublingual tablet 0.4 mg sublingual Q5-15M PRN chest pain #25 tabs 06/20/18 [Rx Last Taken Unknown] metformin 500 mg tablet,extended release 24 hr 500 mg PO DAILY 05/01/19 [History Last Taken Unknown] clopidogrel 75 mg tablet 75 mg PO DAILY #90 tabs 07/01/21 [Rx Last Taken Unknown] escitalopram oxalate 10 mg tablet (Lexapro) 10 mg PO DAILY 11/03/21 [History Last Taken Unknown] atorvastatin 80 mg tablet 80 mg PO QHS 03/12/22 [History Last Taken Unknown] lisinopril 10 mg-hydrochlorothiazide 12.5 mg tablet 12.5 tab PO DAILY 03/12/22 [History Last Taken Unknown] Allergy/AdvReac Type Severity Reaction Status Date / Time shrimp Allergy Nausea/Vom/ Verified 03/12/22 10:35 Diarrhea Family History Mother CAD (coronary artery disease) Congestive heart failure Brother Myocardial infarction, Onset Age: 74 Surgical History Presence of coronary angioplasty implant and graft Social History Smoking Status: Former smoker how long ago did patient quit smokin years ago alcohol intake: never substance use type: does not use caffeine: Yes Type: coffee Number of servings: 4 EXAM Physical Exam Const Vital Signs: 03/12/22 10:36 Temperature 97.1 F L Temperature Source Temporal Pulse Rate 63 Respiratory Rate 16 Blood Pressure 134/83 H Blood Pressure Mean 100 Pulse Ox 97 Oxygen Delivery Method Room Air General Appearance ED: NAD; Negative for pallor HEENT Reports moist mucous membranes and dry mucous membranes normocephalic and atraumatic Mouth ED: Yes dry mucous membranes Mouth: dry mucous membranes Eyes PERRL and EOMs intact bilaterally General Eye ED: Negative for pale conjunctiva or scleral icterus Resp normal respiratory effort Cardio regular rate and regular rhythm GI non-tender no CVA tenderness Neuro oriented x3, CN's II-XII intact bilaterally, moves all extremities, no focal motor deficits, no sensory deficits noted and deep tendon reflexes 2+ bilaterally Sensorium / Orientation: alert Motor Exam: strength 5/5 throughout Psych mental status grossly normal Skin General Skin Exam: Negative for jaundice or pallor MDM MDM MDM Narrative Medical decision making narrative: 81-year-old male presenting with hematuria. He states his urinalysis here in the ER was clear. He does not have any other symptoms. He feels well otherwise. He states I am a worrier of the family. Vital signs are stable he is afebrile. He is well-appearing. I obtained a urinalysis which shows 250 occult blood. There is no evidence of infection. Discussed with patient options to check basic lab work and possibly a CT scan to rule out a kidney stone versus following up with urology for hematuria. Given the patient has no other symptoms and is well-appearing he feels as if he would be okay to follow-up with urology as an outpatient. I did give him return precautions if he should develop flank pain, nausea vomiting, fever, difficulty urinating. He acknowledges understanding. Impression: 1. Hematuria Lab Data Attestation: I reviewed the patient's lab results. Labs: Laboratory Results - last 24 hr 03/12/22 11:25 Urine Color Yellow Urine Clarity Clear Urine pH 6.0 Ur Specific [place] 1.010 Urine Protein 30 H Urine Glucose (UA) 50 H Urine Ketones Negative Urine Occult Blood 250 H Urine Nitrite Negative Urine Bilirubin Negative Urine Urobilinogen Normal Ur Leukocyte Esterase Negative Urine RBC 10-25 SEEN Urine WBC 0-5 SEEN Ur Squamous Epith Cells 0 SEEN Urine Bacteria 0 SEEN Urine Mucus 0 SEEN Discharge Plan Triage Chief Complaint: Complaint ED Provider: Garfield May Dx/Rx/DC Orders Prescriptions: No Action aspirin [Adult Low Dose Aspirin] 81 mg tablet,delayed release (DR/EC) 81 mg PO DAILY metoprolol succinate [Toprol XL] 25 mg tablet extended release 24 hr 25 mg PO DAILY metformin 500 mg tablet extended release 24 hr 500 mg PO DAILY escitalopram oxalate [Lexapro] 10 mg tablet 10 mg PO DAILY atorvastatin 80 mg tablet 80 mg PO QHS lisinopril-hydrochlorothiazide 10-12.5 mg tablet 12.5 tab PO DAILY nitroglycerin 0.4 mg tablet, sublingual 0.4 mg SUBLINGUAL Q5-15M PRN (Reason: chest pain) Qty: 25 3RF clopidogrel 75 mg tablet 75 mg PO DAILY Qty: 90 3RF Primary Care Provider: Jason Matson Referrals: Jason Matson MD [Primary Care Provider] -
[2022-03-12 12:25] VITALS: BP 124/78; PULSE 60; RESP 18; O2SAT 96
== END 2022-03-12 12:26 | disposition home or self-care (01) ==
PROVIDERS: Emergency Provider Student in an Organized Health Care Education/Training Program; PCP Family Medicine; Visit Provider Student in an Organized Health Care Education/Training Program
DX: R31.9 Hematuria, unspecified (principal); E11.9 Type 2 diabetes mellitus without complications; I10 Essential (primary) hypertension; I25.10 Atherosclerotic heart disease of native coronary artery without angina pectoris; I25.2 Old myocardial infarction; F41.9 Anxiety disorder, unspecified; Z86.73 Personal history of transient ischemic attack (TIA), and cerebral infarction without residual deficits; Z86.718 Personal history of other venous thrombosis and embolism; Z95.0 Presence of cardiac pacemaker; Z95.5 Presence of coronary angioplasty implant and graft; Z79.82 Long term (current) use of aspirin; Z79.899 Other long term (current) drug therapy; Z79.84 Long term (current) use of oral hypoglycemic drugs; Z87.891 Personal history of nicotine dependence
CPT/HCPCS: 81001; 99282

== ENCOUNTER → 2022-03-28 | Outpatient (CLI) | payer MEDICARE, SELFPAY ==
--- NOTE | 2022-03-28 08:10 | CT_ITS ---
STUDY: CT ABDOMEN AND PELVIS WITHOUT CONTRAST REASON FOR EXAM: Male, 81 years old. GROSS HEMATURIA RADIATION DOSAGE (If Supplied By Facility): CTDIvol = ( 15.29 ) mGy, DLP = ( 798.20 ) mGycm TECHNIQUE: Transaxial images were obtained from the dome of the diaphragm to the symphysis pubis without oral contrast, and without intravenous contrast. Sagittal and coronal images were reconstructed. Individualized dose optimization techniques were used for this CT. COMPARISON: None. FINDINGS: Mild increased markings at the lung bases with evidence of bronchiectasis suggests some scarring. Coronary artery calcification. Dual-chamber pacemaker is seen. Normal liver. Normal gallbladder and extrahepatic biliary system. Normal spleen. Normal pancreas. Normal bilateral adrenal glands. 2 mm calculus is seen in the midpole of the right kidney. Normal left kidney. Nonspecific bilateral perinephric stranding. Normal visualized stomach. Normal small intestine. There are multiple colonic diverticula consistent with diverticulosis. The appendix is visualized and appears normal. There is diffuse atherosclerotic calcification of the abdominal aorta, without a demonstrated aneurysm. Normal inferior vena cava. Normal retroperitoneum. Diffuse bladder wall thickening although the bladder is not completely distended at this time. The prostate measures 4.1 cm x 5.1 cm. Normal abdominal wall. There are diffuse degenerative changes of the visualized lumbar spine. CT/Abdomen/Pelvis without Cont IMPRESSION: 2 mm calculus in the midpole calyx of the right kidney. Nonspecific bilateral perinephric stranding. Diffuse bladder wall thickening although the bladder is not completely distended at this time. Electronically Signed: Apolinar Agrawal MD at 9:04 EST ,
== END | disposition home or self-care (01) ==
PROVIDERS: PCP Family Medicine; Visit Provider Family Medicine
DX: I25.10 Atherosclerotic heart disease of native coronary artery without angina pectoris (principal); I70.0 Atherosclerosis of aorta; J47.9 Bronchiectasis, uncomplicated; N20.0 Calculus of kidney; K57.30 Diverticulosis of large intestine without perforation or abscess without bleeding; R31.9 Hematuria, unspecified
CPT/HCPCS: 74176

== ENCOUNTER 2022-09-07 07:25 | Day surgery (SDC) | payer MEDICARE, SELFPAY ==
--- NOTE | 2022-09-02 08:12 | EKG12_ITS ---
Test Reason : PRE OP Blood Pressure : / mmHG Vent. Rate : 062 BPM Atrial Rate : 062 BPM P-R Int : 200 ms QRS Dur : 188 ms QT Int : 490 ms P-R-T Axes : -25 -54 131 degrees QTc Int : 497 ms Atrial-paced rhythm Left axis deviation Left bundle branch block Abnormal ECG Confirmed by NITHIN CARLSON, LUIS DANIEL ([id number]), development editor JOCELYNE GERMAIN ([id number]) on 09/05/2022 11:04:24 A M Referred By: Isaiah Flor Confirmed By:KENYATTA WELLER MD
[2022-09-02 08:14] LABS: Hematocrit 46.9 % (40-54); Hemoglobin 15.1 g/dL (13.0-16.5); Mean Corp Hgb Conc 32.2 g/dL (32-36); Mean Corpuscular Hgb 31.6 pg (27.0-32.0); Mean Corpuscular Volume 98.1 fL (80-94); Mean Platelet Vol. 8.9 fl (6.2-12.0); Platelet Count 198 K/mm3 (150-450); RBC Distribution Width SD 46.7 fl (35.1-43.9); Red Blood Count 4.78 M/mm3 (4.6-6.2); White Blood Count 5.9 K/mm3 (4.4-11.0)
[2022-09-02 08:31] LABS: Hemoglobin A1c 6.6 % (3.8-5.6)
[2022-09-02 08:35] LABS: Anion Gap 6 (5-15); BUN 17 mg/dL (7-18); BUN/Creat Ratio 15.7 RATIO (10-20); Calcium,Total 9.5 mg/dL (8.5-10.1); Chloride 103 mmol/L (98-107); Creatinine, Serum 1.08 mg/dL (0.70-1.30); EST Glomerular Filtration Rate 70 mL/min (>60); Est Glom Filt Rate - Afr Amer 84 mL/min (>60); Glucose 122 mg/dL (74-106); Potassium 4.1 mmol/L (3.5-5.1); Sodium Level 138 mmol/L (136-145)
--- NOTE | 2022-09-07 | BLB_PTH ---
PATIENT: AZAR LINDO [place] [facility] [id number] AGE/SX: 82/M ROOM: RE09/07/[address]: Dr. Isaiah Flor MD : [id number] BED: DIS: 09/07/2022 SPEC #: [id number] RECD: 09/07/22 12:51 STATUS: DONALD RETomasz #: [id number] ALYSON: 09/07/22 00:[address]: Isaiah Flor DEPT: SURGICAL PATHOLOGY RECD BY: David Cavanaugh ENTERED: 09/07/22 12:51 SP TYPE: TURB OTHR DR: MD Dr. Jaison Burleson DO Tissues: Urinary bladder, NOS Procedures: Surgery Specimen Level V HEADER OPERATION: Cysto, transurethral resection bladder, Olympus PRE-OP DIAGNOSIS: Bladder tumor large TISSUE SUBMITTED: Bladder tumor MICROSCOPIC DIAGNOSIS Urinary bladder tumor, transurethral resection: Papillary urothelial carcinoma. See cancer synoptic report below. AM:lolly 09/08/2022 COMMENT BLADDER CANCER (TUR) SUMMARY Procedure: Transurethral resection of bladder tumor (TURBT) Tumor site: Not specified Histologic type: Papillary urothelial carcinoma Associated epithelial lesions: None identified Histologic grade: 1/3 Tumor configuration: Papillary Muscularis propria presence: Not present Lymphvascular invasion: Not identified Tumor extension: Confined to urothelium. Additional pathologic findings: None The above summary is in compliance with [employer] (CAP) Cancer Protocols Checklist and [place] Joint Committee on Cancer (AJCC), Staging Manual, 8th Ed. MICROSCOPIC DESCRIPTION Slides are reviewed. GROSS DESCRIPTION Received in fixative is one container labeled with the patient's name and designated bladder tumor. The specimen consists of multiple irregular fragments of claire tissue that in aggregate measure 2.3 x 1.5 x 0.1 cm. The specimen is totally submitted in one cassette. / AM:lolly 09/07/2022 TC:0 CPT: 02720
[2022-09-07] MEDS: Lactated Ringers 1,000 ML 15 ML IV ×2 (07:51→09:31)
[2022-09-07 07:53] VITALS: BP 164/76; PULSE 60; RESP 18; TEMP 36.6; O2SAT 97; BMI 26.8
[2022-09-07 08:19] LABS: Bedside Glucose 143 mg/dL (74-106)
--- NOTE | 2022-09-07 08:38 | DCINST_ITS ---
Discharge Instructions Diet Discharge Diet: No restrictions Activity Discharge Activity: Return to Normal Activity Dressing / Incision Call your doctor if you observe: Fever of 101 or Higher Follow Up Care Please Follow Up With: Isaiah Flor MD When: 2 -3 weeks, call for appt. Test Results: Test results from this visit will be discussed in further detail at your follow- up appointment, if applicable. Discharge Plan Admission Primary Reason for Your Visit: resection of bladder tumor Attending Provider: Isaiah Flor Primary Care Provider: Jaison Hughes Consulting Providers: Rosalino Regalado Discharge Orders/Prescriptions Prescriptions: New oxycodone 5 mg capsule 5 mg PO Q6H PRN (Reason: pain) 3 Days Qty: 10 0RF cephalexin 500 mg capsule 500 mg PO BID Qty: 10 0RF Continued aspirin [Adult Low Dose Aspirin] 81 mg tablet,delayed release (DR/EC) 81 mg PO DAILY metoprolol succinate [Toprol XL] 25 mg tablet extended release 24 hr 25 mg PO DAILY metformin 500 mg tablet extended release 24 hr 500 mg PO DAILY escitalopram oxalate [Lexapro] 10 mg tablet 10 mg PO DAILY lisinopril-hydrochlorothiazide 10-12.5 mg tablet 12.5 tab PO DAILY nitroglycerin 0.4 mg tablet, sublingual 0.4 mg SUBLINGUAL Q5-15M PRN (Reason: chest pain) Qty: 25 3RF atorvastatin 80 mg tablet See Rx Instructions .ROUTE .COMPLEX Qty: 90 4RF Dose Instruction: TAKE 1 TABLET BY MOUTH AT BEDTIME Rx Instructions: TAKE 1 TABLET BY MOUTH AT BEDTIME clopidogrel 75 mg tablet 75 mg PO DAILY Qty: 90 3RF Other Ambulatory Orders: 12 Lead EKG (Routine) Timeframe: [id number] Location: None Selected Ordered By: Dr. Rosalino Regalado Referrals / Follow Up: Isaiah Flor MD [Med Staff - Active Staff] - Jaison Hughes DO [Primary Care Provider] - Disposition Disposition (needs filled in before D/C Order can be placed): Home, Self Care
--- NOTE | 2022-09-07 08:38 | PCM.HP.STD ---
HPI - General General Date of Service: 09/07/22 Chief Complaint: Bladder tumor large HPI Narrative AZAR LINDO, is a 82 M who presents for transurethral resection of a bladder tumor and instillation of Mitomycin-C [facility] Medical History (Updated 09/07/22 @ 08:[address] Isaiah Flor MD) Anxiety disorder Atherosclerotic heart disease of [place] coronary artery without angina pectoris CAD (coronary artery disease) Cardiology follow-up encounter Complete heart block CVA (cerebral vascular accident) Depression Diabetes Diabetes mellitus, type 2 DVT (deep venous thrombosis) Dyslipidemia Esophagitis Esophagitis Essential hypertension Former smoker High cholesterol History of atrial fibrillation History of echocardiogram History of malignant melanoma History of melanoma History of non-ST elevation myocardial infarction (NSTEMI) History of pacemaker History of stress test Hypertension IBS (irritable bowel syndrome) Mixed hyperlipidemia Nonrheumatic aortic (valve) insufficiency Presence of cardiac pacemaker (~02/01/18) Presence of stent in coronary artery (~08/2011) RBBB (right bundle branch block) Thoracic aortic aneurysm without rupture Wears dentures Wears glasses Home Medications aspirin 81 mg tablet,delayed release (Adult Low Dose Aspirin) 81 mg PO DAILY 02/14/18 [History Last Taken 09/06/22] metoprolol succinate 25 mg tablet,extended release 24 hr (Toprol XL) 25 mg PO DAILY 02/14/18 [History Last Taken 09/06/22] nitroglycerin 0.4 mg sublingual tablet 0.4 mg sublingual Q5-15M PRN chest pain #25 tabs 06/20/18 [Rx Last Taken Unknown] metformin 500 mg tablet,extended release 24 hr 500 mg PO DAILY 05/01/19 [History Last Taken Unknown] escitalopram oxalate 10 mg tablet (Lexapro) 10 mg PO DAILY 11/03/21 [History Last Taken Unknown] lisinopril 10 mg-hydrochlorothiazide 12.5 mg tablet 12.5 tab PO DAILY 03/12/22 [History Last Taken Unknown] atorvastatin 80 mg tablet See Rx Instructions .Route .COMPLEX #90 TABLETS 03/23/22 [Rx Last Taken Unknown] clopidogrel 75 mg tablet 75 mg PO DAILY #90 tabs 04/05/22 [Rx Last Taken 08/28/22] cephalexin 500 mg capsule 500 mg PO BID #10 caps 09/07/22 [Rx Last Taken Unknown] oxycodone 5 mg capsule 5 mg PO Q6H PRN pain 3 days #10 caps 09/07/22 [Rx Last Taken Unknown] Allergy/AdvReac Type Severity Reaction Status Date / Time shrimp Allergy Nausea/Vom/ Verified 09/07/22 07:50 Diarrhea Family History (Reviewed 04/29/22 @ 11:35 by Avila Walker [employer]BESTOS SHINGLE INSPECTOR, ASBESTOS SHINGLE INSPECTOR-C) Mother CAD (coronary artery disease) Congestive heart failure Brother Myocardial infarction, Onset Age: 74 Surgical History Presence of coronary angioplasty implant and graft Social History (Reviewed 04/29/22 @ 11:35 by Avila Walker [employer]BE[employer] SHINGLE INSPECTOR, ASBE[employer] SHINGLE INSPECTOR-C) Smoking Status: Former smoker how long ago did patient quit smokin years ago alcohol intake: never substance use type: does not use caffeine: Yes Type: coffee Number of servings: 4 Vital Signs Vital Signs Vital Signs: 09/07/22 07:53 09/07/22 07:53 Temperature 98 F Temperature Source Temporal Pulse Rate 60 Respiratory Rate 18 Respiratory Pattern Normal Blood Pressure 164/76 H Blood Pressure Mean 105 Blood Pressure Source Monitor Blood Pressure Position Semi-Fowlers Blood Pressure Location Right Arm Pulse Ox 97 Oxygen Delivery Method Room Air Weight Weight: 94.801 kg Body Mass Index (BMI) 26.8 Results Lab / Micro Data Result Diagrams: 09/02/22 08:01 09/02/22 08:01 Labs: Laboratory Results - last 24 hr 09/07/22 07:42: POC Glucose 143 H
[2022-09-07] MEDS: Cefazolin 2 GM in 0.9% Normal Saline 100 ML IV (09:12)
--- NOTE | 2022-09-07 09:54 | OP.PCM_ITS ---
Report of Operation Date of Procedure: 09/07/22 Pre-Operative Diagnosis: Bladder tumor Post-Operative Diagnosis: The same, bladder tumor measuring 3.5 cm x 4 cm x 2.5 cm left lateral wall Surgery/Procedure Performed:: Transurethral resection of a bladder tumor instillation Mitomycin-C Description of Surgical Findings:: Patient presented to the hospital for treatment of a tumor that was found in the bladder with a very large bladder tumor. Patient understands is possible it may not be able to resect the entire tumor. Patient also understands is possible that the patient may need multiple procedures or more invasive procedures to cure him of this cancer. Patient was taken back to the operating room after smooth induction of anesthesia the patient was placed supine on the table. The patient was placed in dorsolithotomy position. The urethra and genitals prepped and draped in usual sterile fashion. I went into the bladder with a 30 degree lens and a cystoscope was performed and identified the tumor occupying mostly the left lateral wall of the bladder. I then switched over to the 70 degree lens and inspected the rest of the bladder with a 70 degree lens to make sure there is no other tumors in the bladder and to identify all the tumor locations. The right and left ureteral orifice were identified. The tumor was involved in the ureteral orifice. I then placed the Olympus bipolar resectoscope with a large l oop into the bladder. I then started resected the tumor and started superficially shaving small little pieces working my way to the base of the tumor. As I went along I then cauterize any bleeders that were encountered during the resection. The tumor pieces were then flushed out of the bladder and continued resecting the tumor until finally I got down to the base of the tumor and the muscle of the bladder was then identified a small little bit of muscle was taken with the resection. The Ellik was used then to evacuate all the tumor pieces out of the bladder. I then cauterized extensively the tumor base and also circumferentially around where the tumor was. Again we made sure to evacuate all the pieces out the bladder. I made sure there was no more bleeding from the base of the bladder and then over the tumor pieces were then evacuated out and sent off as a specimen. After the resection of the entire tumor was completed then treatment with Mitomycin-C was performed. We then placed the catheter in the bladder and the patient was taken back to the PACU in stable condition. Surgeon: Isaiah Flor Type of Anesthesia: General Special Medications: mitomycin C Drains: none Admit VTE Documentation VTE Present on Admission: No VTE Mechan Device Prophylaxis: SCD's VTE Pharm Prophylaxis ordered?: No
[2022-09-07 10:12] VITALS: BP 136/74; BP 164/76; PULSE 60; RESP 16; TEMP 36.8; O2SAT 100
[2022-09-07 10:15] VITALS: BP 144/71; BP 164/76; PULSE 60; RESP 16; O2SAT 99
[2022-09-07 10:30] VITALS: BP 143/77; BP 164/76; PULSE 60; RESP 16; O2SAT 93
[2022-09-07 10:42] LABS: Bedside Glucose 106 mg/dL (74-106)
[2022-09-07 10:45] VITALS: BP 150/75; BP 164/76; PULSE 62; RESP 16; TEMP 36.5; O2SAT 93
[2022-09-07 11:21] VITALS: BP 153/80; BP 164/76; PULSE 60; RESP 16; TEMP 36.2; O2SAT 96
== END 2022-09-07 11:34 | disposition home or self-care (01) ==
LOC: SDC 07:27 → AC 07:28
PROVIDERS: Anesthesiology; PCP Family Medicine; Referring Provider Urology; Visit Provider Urology
PROC: 0T5B8ZZ Destruction of Bladder, Via Natural or Artificial Opening Endoscopic (ICD-10-PCS; CPT 51720; principal; 2022-09-07 09:25)
DX: C67.9 Malignant neoplasm of bladder, unspecified (principal); I71.20 Thoracic aortic aneurysm, without rupture, unspecified; E11.9 Type 2 diabetes mellitus without complications; I10 Essential (primary) hypertension; Z79.84 Long term (current) use of oral hypoglycemic drugs; I25.10 Atherosclerotic heart disease of native coronary artery without angina pectoris; E78.2 Mixed hyperlipidemia; Z79.02 Long term (current) use of antithrombotics/antiplatelets; Z79.82 Long term (current) use of aspirin; Z87.891 Personal history of nicotine dependence; Z95.5 Presence of coronary angioplasty implant and graft; I35.1 Nonrheumatic aortic (valve) insufficiency; Z95.0 Presence of cardiac pacemaker
CPT/HCPCS: 52250; 52240; 36415; 80048; 82962; 83036; 85027; 88307; 93005; J7120; J2405; J3490; J9280

== ENCOUNTER → 2023-01-30 | Outpatient (CLI) | payer MEDICARE, SELFPAY ==
[2023-01-30 10:50] LABS: AST(SGOT) 22 U/L (15-37); Alanine Aminotransfer ALT/SGPT 26 U/L (16-61); Albumin, Serum 3.8 g/dL (3.2-5.0); Alkaline Phosphatase 82 U/L (45-117); Bilirubin, Direct 0.26 mg/dL (0.00-0.30); Cholesterol 102 mg/dL (200); Globulin 3.5 g/dL (2.2-4.2); High Density Lipoprotein 43 mg/dL; Protein, Total 7.3 g/dL (6.4-8.2); Triglycerides 134 mg/dL; Very Low Density Lipoprotein 27 mg/dL (5-40)
[2023-01-30 11:07] LABS: Hemoglobin A1c 6.6 % (3.8-5.6)
== END | disposition home or self-care (01) ==
LOC: LAB 10:11
PROVIDERS: PCP Family Medicine; Referring Provider Nurse Practitioner Family; Visit Provider Nurse Practitioner Family
DX: E11.9 Type 2 diabetes mellitus without complications (principal); E78.2 Mixed hyperlipidemia; I25.10 Atherosclerotic heart disease of native coronary artery without angina pectoris
CPT/HCPCS: 36415; 80061; 80076; 83036

== ENCOUNTER → 2023-09-04 | Outpatient (CLI) | payer MEDICARE, SELFPAY ==
--- NOTE | 2023-09-04 10:50 | STRESSREP_ITS ---
Stress Test Report Pharmacologic myocardial perfusion stress test. 83-year-old man with a history of pacemaker implantation Resting EKG demonstrates atrial fibrillation with ventricular pacing with a rate of [62] bpm. Resting blood pressure is 122/80 mmHg. 0.4 mg of regadenoson was infused per usual protocol followed by rapid intravenous saline flush injection. Continuous EKG monitoring was performed. The maximum heart rate was 65 bpm which was 47% of max impacted heart rate the maximum workload was 1 metabolic equivalent. At rest there were no ST or T wave changes noted to suggest ischemia and at peak infusion nonspecific ST changes were noted which did not meet the criteria for ischemia. No clinical angina is noted. The final blood pressure was 130/62 mmHg. Myocardial perfusion protocol. 14 point mCi of technetium 99m sestamibi was injected at rest. 0.4 mg of regadenoson was infused per usual protocol. At peak infusion 44.1 mCi of te chnetium 99m sestamibi was injected stress images were obtained stress and rest images were reconstructed and compared in the short axis vertical long and horizontal long axis. Gated images were also obtained. Perfusion SPECT analysis: Review of the stress images demonstrate normal uptake of tracer noted in all areas of the myocardium except for small area in the apex with reduced perfusion.. The resting images similar demonstrated normal uptake of tracer noted in all areas of the myocardium with a small area of apical perfusion defect. The above is likely secondary to pacemaker activity. No reversibility is noted suggest ischemia. Gated SPECT analysis: The gated ejection fraction is 47%. Conclusion: Normal pharmacologic myocardial perfusion stress test. Mildly reduced ejection fraction. Left bundle branch block from pacemaker activity
== END | disposition home or self-care (01) ==
PROVIDERS: PCP Family Medicine; Referring Provider Nurse Practitioner Family; Visit Provider Nurse Practitioner Family
DX: I25.10 Atherosclerotic heart disease of native coronary artery without angina pectoris (principal); Z95.5 Presence of coronary angioplasty implant and graft; Z95.0 Presence of cardiac pacemaker
CPT/HCPCS: 78452; 93017; A9500; A4216; J2785

== ENCOUNTER → 2023-09-26 | Outpatient (CLI) | payer MEDICARE, SELFPAY ==
--- NOTE | 2023-09-26 09:55 | ECHOD_ITS ---
Reason For Study: AORTIC INSUFFICIENCY Procedure This was a 2D Doppler, Color Flow transthoracic echocardiogram. Exam performed in department. Left Ventricle Normal LV size. Moderate concentric left ventricular hypertrophy. The left ventricular ejection fraction is 40 %. Mild to moderate global left ventricular systolic dysfunction. Bryan : Severely Hypokinetic. Apical wall motion abnormality may reflect pacemaker activation. Right Ventricle Normal RV size. ICD or pacer leads identified within the right ventricle. Normal systolic function. Atria Normal left atrium. Normal right atrium. Mitral Valve Normal mitral valve. Tricuspid Valve Normal tricuspid valve. Mild (1+) tricuspid valve insufficiency. Pulmonary artery systolic pressure is 30 mmHg. Aortic Valve Trisinus/trileaflet aortic valve. Mild (1+) aortic valve insufficiency. Pulmonic Valve Normal pulmonic valve. Great Vessels Mildly dilated aortic root. The pulmonary artery is normal size. Normal inferior vena cava. Pericardium/Pleural No pericardial effusion. MMode/2D Measurements & Calculations LVIDd: 5.5 cm IVSd: 1.7 cm LVOT diam: 2.0 cm LVIDs: 4.2 cm LVPWd: 1.3 cm LVOT area: 3.3 cm2 RVDd: 3.9 cm FS: 24.5 % Ao root diam: 4.0 cm LAV(MOD-bp): 69.9 ml LVAd ap4: 32.3 cm2 LAV(MOD-bp) Indexed: 31.5 ml/m2 LVLd ap4: 9.4 cm LAV(MOD-sp2): 81.4 ml EDV(MOD-sp4): 86.8 ml LAV(MOD-sp4): 52.4 ml EDV(sp4-el): 93.9 ml LVAs ap4: 25.0 cm2 LVLs ap4: 8.9 cm ESV(MOD-sp4): 54.8 ml ESV(sp4-el): 59.5 ml EF(MOD-sp4): 36.9 % EF(sp4-el): 36.6 % LVAd ap2: 37.8 cm2 SV(MOD-sp4): 32.0 ml SV(MOD-sp2): 54.9 ml LVLd ap2: 8.8 cm EDV(MOD-sp2): 128.4 ml EDV(sp2-el): 138.3 ml LVAs ap2: 27.6 cm2 LVLs ap2: 8.1 cm ESV(MOD-sp2): 73.5 ml ESV(sp2-el): 80.0 ml EF(MOD-sp2): 42.7 % SV(sp4-el): 34.4 ml LA dimension(2D): 4.1 cm LA A4 area: 19.0 cm2 RA A4 area: 11.1 cm2 TAPSE: 1.8 cm Time Measurements MV dec time: 0.33 sec Doppler Measurements & Calculations MV E max sergei: 24.2 cm/sec Lat Peak E' Sergei: 4.5 cm/sec Med Peak E' Sergei: 2.7 cm/sec MV A max sergei: 81.8 cm/sec E/E' lat: 5.3 E/E' med: 9.0 MV E/A: 0.30 Ao V2 max: 124.8 cm/sec AI max sergei: 431.6 cm/sec MV dec slope: 72.3 cm/sec2 Ao max P.2 mmHg AI max P.8 mmHg Ao V2 mean: 85.0 cm/sec Ao mean P.4 mmHg AI dec slope: 223.2 cm/sec2 Ao V2 VTI: 26.4 cm AI P1/2t: 566.4 msec AV (velocity ratio): 0.78 CORRIE(I,D): 2.5 cm2 CORRIE(V,D): 2.8 cm2 LV V1 max: 107.7 cm/sec SV(LVOT): 67.3 ml PA V2 max: 93.0 cm/sec LV V1 max P.6 mmHg PA max PG (full): 1.7 mmHg LV V1 mean P.6 mmHg LV V1 mean: 77.0 cm/sec LV V1 VTI: 20.7 cm PI end-d sergei: 119.8 cm/sec TR max sergei: 250.3 cm/sec TR max P.1 mmHg ECHO/Echo Complete Interpretation Summary Normal LV size. The left ventricular ejection fraction is 40 %. Moderate concentric left ventricular hypertrophy. Mild (1+) aortic valve insufficiency. Bryan : Severely Hypokinetic. Ordering Physician: Avila Walker Referring Physician: Jaison Hughes Performed By: Analisa Chavis RDCS and Student
== END | disposition home or self-care (01) ==
LOC: CVS 09:52
PROVIDERS: PCP Family Medicine; Referring Provider Nurse Practitioner Family; Visit Provider Nurse Practitioner Family
DX: Z95.5 Presence of coronary angioplasty implant and graft (principal); E11.9 Type 2 diabetes mellitus without complications; I45.10 Unspecified right bundle-branch block; I10 Essential (primary) hypertension; I35.1 Nonrheumatic aortic (valve) insufficiency; I71.20 Thoracic aortic aneurysm, without rupture, unspecified
CPT/HCPCS: 93306

== ENCOUNTER → 2024-06-28 | Outpatient (CLI) | payer MEDICARE, SELFPAY ==
[2024-06-28 12:46] LABS: Absolute Lymphocyte Count 2.15 X10^3/uL (0.83-4.51); Absolute Neutrophil Count 3.4 X10^3/uL (2.0-7.7); Basophil# 0.04 X10^3/uL; Basophil% 0.6 % (0-1); Eosinophil# 0.27 X10^3/uL; Eosinophils% 4.2 % (0-5); Hematocrit 47.7 % (40-54); Hemoglobin 15.6 g/dL (13.0-16.5); Lymphocyte # 2.15 X10^3/ul (0.83-4.51); Lymphocyte % 33.4 % (19-41); Mean Corp Hgb Conc 32.7 g/dL (32-36); Mean Corpuscular Hgb 31.9 pg (27.0-32.0); Mean Corpuscular Volume 97.5 fL (80-94); Mean Platelet Vol. 9.7 fl (6.2-12.0); Monocyte# 0.52 X10^3/uL; Monocyte% 8.1 % (0-10); NRBC Flagged by Analyzer 0 % (0-5); Neutrophil # 3.44 X10^3/uL (2.7-7.7); Neutrophil % 53.4 % (47-70); Platelet Count 196 K/mm3 (150-450); RBC Distribution Width CV 12.4 % (11.6-14.6); RBC Distribution Width SD 44.4 fl (35.1-43.9); Red Blood Count 4.89 M/mm3 (4.6-6.2); White Blood Count 6.4 K/mm3 (4.4-11.0)
[2024-06-28 13:10] LABS: Hemoglobin A1c 7.7 % (<=5.6)
[2024-06-28 13:19] LABS: ALB/GLOB Ratio 1.5 RATIO (0.9-2.4); AST(SGOT) 22 U/L (<=37); Alanine Aminotransfer ALT/SGPT 24 U/L (<=46); Albumin, Serum 4.3 g/dL (3.4-4.8); Alkaline Phosphatase 82 U/L (40-129); Anion Gap 10 (5-15); BUN 11 mg/dL (4-19); BUN/Creat Ratio 11.3 RATIO (10-20); Calcium,Total 9.8 mg/dL (7.6-11.0); Carbon Dioxide 27.1 mmol/L (21.0-32.0); Chloride 103 mmol/L (98-108); Cholesterol 99 mg/dL (<=200); EST Glomerular Filtration Rate 75 (>60); Globulin 2.8 g/dL (2.2-4.2); Glucose 148 mg/dL (70-99); High Density Lipoprotein 45 mg/dL; Low Density Lipoprotein Calc. 25 mg/dL; Potassium 4.9 mmol/L (3.3-5.1); Protein, Total 7.1 g/dL (5.9-8.4); Sodium Level 139 mmol/L (133-145); Total Bilirubin 0.84 mg/dL (0.00-1.30); Triglycerides 144 mg/dL; Very Low Density Lipoprotein 29 mg/dL (5-40); cholesterol:hdl ratio screen 2.18
[2024-06-28 13:26] LABS: Microalbumin,Random Urine < 12.0 mg/L (NO RANGE EST.); Microalbumin:Creatinine Ratio UNABLE TO CALCULATE mg/g CRE
== END | disposition home or self-care (01) ==
LOC: BFHLAB 09:36
PROVIDERS: PCP Family Medicine; Visit Provider Family Medicine
DX: E11.9 Type 2 diabetes mellitus without complications (principal); I10 Essential (primary) hypertension; I25.10 Atherosclerotic heart disease of native coronary artery without angina pectoris
CPT/HCPCS: 36415; 80053; 80061; 82043; 82570; 83036; 85025

== ENCOUNTER → 2024-10-14 | Outpatient (CLI) | payer MEDICARE, SELFPAY ==
--- NOTE | 2024-10-14 10:30 | BLA_PTH ---
PATIENT: AZAR LINDO LOC: [facility] U#:[id number] AGE/SX: 84/M ROOM: RE10/14/[address]: Dr. Isaiah Flor MD : 1940 BED: DIS: 10/14/2024 SPEC #: [id number] RECD: 10/14/24 12:00 STATUS: DONALD RETomasz #: [id number] ALYSON: 10/14/24 10:[address]: Isaiah Flor DEPT: SURGICAL PATHOLOGY RECD BY: Chirag Savage ENTERED: 10/15/24 08:51 SP TYPE: BLADDER BX OTHR DR: Dr. 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 Bladder, biopsy: * Partially denuded urothelium with slight chronic inflammation * Lamina propria is negative for neoplasm * Muscularis propria is not identified MICROSCOPIC DESCRIPTION Slides are reviewed. All matched controls reacted appropriately. These tests were developed and their performance characteristics determined by [facility]. They may not have been cleared or approved by the [place] Food and Drug Administration. The FDA has determined that such clearance or approval is not necessary. The above immunohistochemical/dualISH markers are viewed by the Pathologist. GROSS DESCRIPTION A. Received in formalin labeled with the patient's name and date of . Designated as bladder biopsy is a 0.2 x 0.2 x 0.1 cm claire tissue fragment. Entirely submitted in 1 cassette. MO 10/15/2024 CPT:14035,44386
== END | disposition home or self-care (01) ==
LOC: LABSPEC 15:45
PROVIDERS: PCP Family Medicine; Referring Provider Urology; Visit Provider Urology
DX: C67.2 Malignant neoplasm of lateral wall of bladder (principal)
CPT/HCPCS: 88305; 88342